=== PATIENT | female | born 1990 | race Two or more races ===

== ENCOUNTER → 2017-04-14 | Outpatient (CLI) | payer SELFPAY ==
--- NOTE | 2017-04-14 14:42 | RADIOLOGY REPORT (SQ) ---
EXAM DESCRIPTION: U/S OB TRANSVAG W/DOPPLER COMPLETED DATE/TIME: 04/14/2017 2:21 pm REASON FOR STUDY: Z34.81 ENCOUNTER FOR SUPRVSN OF NORMAL , FIRST TRIMESTER Z34.81 ENCOUNTE R FOR SUPRVSN OF NORMAL , FIRST TRIM COMPARISON: None. TECHNIQUE: Transvaginal static and realtime grayscale images acquired of the pelvis. Additional katy cted spectral and color Doppler images recorded. All images stored on PACs. bHCG: Not available. LIMITATIONS: None. FINDINGS: FETUS: Living intrauterine . EGA: 8 week 5 day. NASEEM: 11/19/2017. FHR: 175 beats per minute. SUBCHORIONIC BLEED: Yes. SIZE OF BLEED: 1.8 x 2.4 cm. UTERUS: No masses. No anomalies. No IUD visualized. CERVICAL LENGTH: 3.8 cm. Closed. RIGHT ADNEXA: Normal ovary with normal vascular flow. No adnexal free fluid. 2 cm hypoechoic area, possibly a hemorrhagic cyst. LEFT ADNEXA: Normal ovary with normal vascular flow. No adnexal free fluid. No adnexal masses. FREE FLUID: None. OTHER: No other significant finding. IMPRESSION: LIVING INTRAUTERINE . EGA 8 WEEK 5 DAY. A SUBCHORIONIC BLEED IS PRESENT. NO IUD VISUALIZED. Trimester of : First - 0 to 13 weeks. TECHNICAL DOCUMENTATION: JOB ID: [id number] [employer]- All Rights Reserved
== END ==
LOC: RAD 13:26
PROVIDERS: ATTEND Nurse Practitioner Women's Health
DX: Z34.81 Encounter for supervision of other normal pregnancy, first trimester (principal)
CPT/HCPCS: 76817; 93976

== ENCOUNTER → 2017-07-06 | Outpatient (CLI) | payer SELFPAY ==
--- NOTE | 2017-07-06 14:50 | RADIOLOGY REPORT (SQ) ---
EXAM DESCRIPTION: U/S OB 14+ TRNABD 1GES W/O DOP COMPLETED DATE/TIME: 07/06/2017 2:11 pm REASON FOR STUDY: ENCOUNTER FOR SUPERVISION OF OTHER NORMAL . SECONF TRIMESTER Z34.82 ENCO UNTER FOR SUPRVSN OF NORMAL , SECOND TRI COMPARISON: No previous this TECHNIQUE: Static and Dynamic grayscale imaging performed of gravid uterus using transabdominal appr oach. Additional selected color Doppler and spectral images recorded. All stored on PACS. LIMITATIONS: New FINDINGS: EGA: 20 weeks 5 days NASEEM: 11/18/2017 EFW: 398 grams PERCENTILE: Not calculated CONNIE: Largest pocket 6.3 cm PLACENTA: Posterior GRADE: I PRESENTATION: Cephalic. ANATOMY: HEART RATE: 160 beats per minute. FOUR CHAMBER HEART: Visualized. THREE VESSEL CORD: Yes. CORD INSERTION: Visualized. KIDNEYS AND BLADDER: Visualized. Appear normal. STOMACH: Visualized. Appears normal. SPINE: Normal as visualized. BRAIN AND LATERAL VENTRICLES: Visualized. Appear normal. OTHER: No other significant finding. MATERNAL ADNEXA: Maternal ovaries not visualized. CERVICAL LENGTH: 3.4 cm Closed. OTHER: No other significant finding. IMPRESSION: LIVING INTRAUTERINE . ESTIMATED GESTATIONAL AGE 20 weeks 5 days NO VISUALIZED ANOMALIES. Trimester of : Second trimester - 13 weeks 1 day to 27 weeks 6 days. TECHNICAL DOCUMENTATION: JOB ID: [id number] [employer]- All Rights Reserved
== END ==
LOC: RAD 13:30
PROVIDERS: ATTEND Nurse Practitioner Women's Health
DX: Z34.82 Encounter for supervision of other normal pregnancy, second trimester (principal)
CPT/HCPCS: 76805

== ENCOUNTER 2017-11-13 12:46 | Inpatient (IN) | payer SELFPAY ==
[2017-11-13 13:24] LABS: APPEARANCE,URINE SLIGHTLY-CLOUDY; BILIRUBIN,URINE NEGATIVE (NEGATIVE); COLOR,URINE YELLOW; GLUCOSE, URINE NEGATIVE (NEGATIVE); KETONES,URINE NEGATIVE (NEGATIVE); LEUKOCYTE ESTERASE,URINE TRACE (NEGATIVE); NITRITE,URINE NEGATIVE (NEGATIVE); PROTEIN,URINE NEGATIVE (NEGATIVE); URINE SPECIFIC GRAVITY 1.013
[2017-11-13 13:39] LABS: URINE AMPHETAMINES SCREEN NEGATIVE; URINE BARBITURATES SCREEN NEGATIVE; URINE BENZODIAZEPINES SCREEN NEGATIVE; URINE COCAINE SCREEN NEGATIVE; URINE MARIJUANA (THC) SCREEN NEGATIVE; URINE METHADONE SCREEN NEGATIVE; URINE PHENCYCLIDINE SCREEN NEGATIVE
[2017-11-13] MEDS ORDERED: RINGERS SOLUTION,LACTATED 300 ML IV ONE (14:31)
[2017-11-13] MEDS ORDERED: OXYTOCIN/NORMAL SALINE 20 UNIT/1,000 ML RTUINJ IV PRN ×3 (14:31→21:24)
[2017-11-13 15:58] LABS: ABSOLUTE EOSINOPHILS # (AUTO) 0.1 10^3/uL (0.0-0.6); ABSOLUTE LYMPHOCYTES (AUTO) 1.7 10^3/uL (0.5-4.7); ABSOLUTE MONOCYTES (AUTO) 0.5 10^3/uL (0.1-1.4); ABSOLUTE NEUT (AUTO) 5.3 10^3/uL (1.7-8.2); BASOPHILS % (AUTO) 0.2 % (0-2); EOSINOPHILS % (AUTO) 0.9 % (0-6); HEMOGLOBIN 12.3 g/dL (12.0-15.5); LYMPHOCYTES % (AUTO) 22.3 % (13-45); MEAN CORPUSCULAR HEMOGLOBIN 31.1 pg (27.0-33.4); MEAN CORPUSCULAR HGB CONC 34.1 g/dL (32.0-36.0); MEAN CORPUSCULAR VOLUME 91 fl (80-97); MONOCYTES % (AUTO) 6.9 % (3-13); PLATELET COUNT 258 10^3/uL (150-450); RED BLOOD COUNT 3.96 10^6/uL (3.72-5.28); RED CELL DISTRIBUTION WIDTH 14.1 % (11.5-14.0); SEGMENTED NEUTROPHILS % (AUTO) 69.7 % (42-78); TOTAL CELLS COUNTED % (AUTO) 100 %; WHITE BLOOD COUNT 7.6 10^3/uL (4.0-10.5)
[2017-11-13] MEDS ORDERED: OXYTOCIN/NORMAL SALINE 20 UNIT/1,000 ML RTUINJ ONE (16:20)
[2017-11-13] MEDS ORDERED: LIDOCAINE 1% INJ-PF (10 MG/ML) 30 ML SDV ONE (16:20)
[2017-11-13] MEDS ORDERED: MISOPROSTOL 0.2 MG TABLET ONE (16:20)
--- NOTE | 2017-11-13 17:15 | Admission Physical ---
Datetime Report Generated by CPN: 11/13/2017 17:15 CURRENT ADMISSION Chief Complaint: Sent from OB Office for Evaluation and Treatment - Please Specify Chief Complaint Other: IUP @ 39w1d- polyhydramnious with advanced dilatation at office Indication for Induction: Polyhydramnios; Other Indication for Induction- Other: advance dilatation Admit Impression : Term, Intrauterine Admit Plan: Admit to Unit; Initiate Labor Induction Protocol ALLERGIES Medication Allergies: No Medication Allergies: No Known Allergies (11/30/2011) Latex: No Latex Allergies Food Allergies: N/A Environmental Allergies: N/A OBSTETRICAL HISTORY EDC: 11/19/2017 00:00 : 6 Para: 3 Gestational Diabetes: No Rh Sensitization: No Incompetent Cervix: No AVE: No Infertility: No ART Treatment: No Uterine Anomaly: No IUGR: No Hx Previous C/S: No Macrosomia: No Hx Loss/Stillborn: No PIH: No Hx : No Placenta Previa/Abruption: No Depression/PP Depression: No PTL/PROM: No Post Hemorrhage: No Current Procedures: Ultrasound Obstetrical History Comments: G1 - 2007, SAB G2 - 2008, , Boy G3 - 2012, , Girl G4 - 2013, SAB G5 - 2014, , Girl G6 - Current SEE RECORDS Alcohol: No Marijuana : No Cocaine: No Other Illicit Drugs: No Cigarettes: Never Smoker. [id number] MEDICAL HISTORY Diabetes: No Blood Transfusion: Yes Pulmonary Disease (Asthma, TB): No Breast Disease: No Hypertension: No Typesetting Machine Operator/Tender Surgery: No Heart Disease: No Hosp/Surgery: No Autoimmune Disorder: No Anesthetic Complications: No Kidney Disease: No Abnormal Pap Smear: No Neuro/Epilepsy: No Psychiatric Disorders: No Other Medical Diseases: No Hepatitis/Liver Disease: No Significant Family History: No Varicosities/Phlebitis: No Trauma/Violence : No Thyroid Dysfunction: No Medical History Comments: Blood Transfusion 2007 with D_C INFECTIOUS HISTORY Gonorrhea: No Genital Herpes: No Chlamydia: No Tuberculosis: No Syphilis: No Hepatitis: No HIV/AIDS Exposure: No Rash or Viral Illness: No HPV: No PHYSICAL EXAM General: Normal HEENT: Deferred Neurologic: Normal Thyroid: Deferred Heart: Normal Lungs: Normal Breast: Deferred Back: Normal Abdomen: Normal Genitourinary Exam: Normal Extremities: Normal DTRs: Normal Pelvic Type: Adequate Vital Signs: Reviewed; Within Normal Limits VAGINAL EXAM Dilatation: 6 Effacement: 60 Station: -2 Contraction Comments: 2-4 MEMBRANES Membranes: Ruptured Amniotic Fluid Color: Clear FETUS A EGA: 39.1 Monitoring: External US Variability: Moderate 6-25bpm Decelerations: None FHR Category: Category I Admit Comment: 26yo @ 39w1d sent from office for IOL with polyhydramnious and advance dilatation. Pt. is B pos, Rubella immune, GBS neg with late entry to care and obesity. No other significant medical hx and pelvis proven to 8lbs. Pt. admitted into unit and AROM'ed by Dr. Anderson with large amount of clear fluid will augment with pit if needed. Desires natural childbirth. PLANS FOR LABOR AND DELIVERY Labor and Delivery: None Pain Management: Natural Feeding Preference: Both Benefit of Breast Feed Discussed: Yes Circumcision: N/A INFORMED CONSENT Assignment: Ann Anderson MD Signature: with User ID: Lexis : with User ID: [email or web address]
--- NOTE | 2017-11-13 17:33 | L&D Progress Notes ---
PROGRESS NOTES Datetime Report Generated by CPN: 11/13/2017 17:33 PROGRESS NOTE Impression Other: IUP @ 39w1d- stable Procedures: Sterile Vag Exam Plan: Continue Present Management; Augmentation Informed Consent Obtained: Vaginal Delivery; Induction of Labor; Risks, Benefits and Alternatives Discussed Vital Signs : Reviewed; Within Normal Limits Comment: S: pt. reports increased perineal pain with contractions, comfortable does not want pain medication or epidural at this time O: VSS, cervix as stated A: IUP @39w1d- poly and advanced dilatation-AROM by Dr. Anderson, desires to wait on pitocin at this time P: continue IOL, pit protocol as needed. VAGINAL EXAM Dilatation: 6 Effacement: 60 Station: -2 Contractions: 2-4 MEMBRANES Membranes: Ruptured Amniotic Fluid Color: Clear FETUS A Monitoring: External US FHR Category: Category I SIGNATURE SIGNATURE: [id number];[id number] SIGNATURE: [id number] Assignment: Ann Anderson MD Signature: with User ID: Lexis : with User ID: [email or web address]
[2017-11-13] MEDS: RINGERS SOLUTION,LACTATED 1,000 ML IV PRN ×3 (17:48→19:09)
[2017-11-13] MEDS ORDERED: FENTANYL/BUPIVACAINE/NS/PF 300 MCG/150 ML RTUINJ EPI ONE (18:24)
[2017-11-13] MEDS ORDERED: BUPIVACAINE HCL 0.25 % INJ/PF (2.5 MG/1 ML) 30 ML VIAL ONE (18:24)
[2017-11-13] MEDS ORDERED: EPHEDRINE SULFATE INJ 50 MG/1 ML AMPULE ONE (18:24)
[2017-11-13] MEDS ORDERED: LIDOCAINE 1.5%/EPINEPHRINE INJ-PF 30 ML SDV ONE (18:24)
[2017-11-13] MEDS ORDERED: NA PHOS,M-B/NA PHOS,DI-BA (ADULT) 133 ML ENEMA PR PRN (21:24)
[2017-11-13] MEDS ORDERED: DIPH/PERTUSS(ACELL)/TETANUS VAC/PF 0.5 ML SYR (>=10YO) IM PRN (21:24)
[2017-11-13] MEDS ORDERED: DIBUCAINE 1% OINTMENT 28 GM TP PRN (21:24)
[2017-11-13] MEDS ORDERED: PROMETHAZINE HCL 25 MG SUPP.RECT PR PRN (21:24)
[2017-11-13] MEDS ORDERED: DIPHENHYDRAMINE HCL 25 MG CAPSULE PO PRN (21:24)
[2017-11-13] MEDS ORDERED: MEASLES,MUMPS&RUBELLA VACC/PF 0.5 ML VIAL SUBCUT PRN (21:24)
[2017-11-13] MEDS ORDERED: MISOPROSTOL 0.2 MG TABLET PR PRN (21:24)
[2017-11-13] MEDS ORDERED: GLYCERIN/WITCH HAZEL LEAF 1 EACH MED..PAD TP PRN (21:24)
[2017-11-13] MEDS ORDERED: MAGNESIUM HYDROXIDE SUSP 30 ML UDCUP PO PRN (21:24)
[2017-11-13] MEDS ORDERED: PSEUDOEPHEDRINE HCL 30 MG TABLET PO PRN (21:24)
[2017-11-13] MEDS ORDERED: ACETAMINOPHEN 325 MG TABLET PO PRN (21:24)
[2017-11-13] MEDS ORDERED: PROMETHAZINE HCL INJ 25 MG/1 ML VIAL IV PRN (21:24)
[2017-11-13] MEDS ORDERED: BENZOCAINE/MENTHOL AEROSOL SPRAY 56 ML TOP PRN (21:24)
[2017-11-13] MEDS ORDERED: ZOLPIDEM TARTRATE 5 MG TABLET PO PRN (21:24)
[2017-11-13] MEDS ORDERED: PROMETHAZINE HCL 25 MG TABLET PO PRN (21:24)
[2017-11-13] MEDS ORDERED: ACETAMINOPHEN WITH CODEINE #3 TABLET PO PRN ×2 (21:24)
[2017-11-13] MEDS ORDERED: IBUPROFEN 800 MG TABLET ONE (21:56)
[2017-11-13] MEDS ORDERED: FAMOTIDINE 20 MG TABLET ONE (21:56)
[2017-11-13] MEDS: FAMOTIDINE 20 MG TABLET PO SCH (22:03)
[2017-11-13] MEDS: IBUPROFEN 800 MG TABLET PO SCH (22:04)
--- NOTE | 2017-11-13 22:29 | Delivery Summary ---
Del Sum A-C Datetime Report Generated by CPN: 11/13/2017 22:29 DELIVERY PERSONNEL DELIVERY PERSONNEL: [id number] Delivery Doctor:: Ann Anderson MD Anesthesiologist:: Jonathan Contreras MD Labor and Delivery Nurse:: Analilia Chavez RNburglar alarm assembler Nurse:: Anna Cantu RN Customizer/ACQUISITIONS ANALYST: Adelia Haq, ST MATERNAL INFORMATION Delivery Anesthesia: Epidural Medications After Delivery: Pitocin Drip 20 Units/1000ml NSS; Other-Please Comment Meds After Delivery Comment: Cytotec 1000 mcg MA Maternal Complications: None Provider Comments: VFI delivered in EVA presentation. No nuchal cord. Shoulders and body delivered without difficulty. Cord doubly clamped and cut and infant to maternal abdomen. Compound left hand noted. Placenta delivered intact spntaneously. FF at U. Cytotec 1000mcg per rectum placed. Superficial left labial laceration repaired. Good hemostasis. Mother and baby stable upon provider leaving the room. LABOR SUMMARY EDC: 11/19/2017 00:00 No. Babies in Womb: 1 Attempted: No Labor Anesthesia: Epidural LABOR INFORMATION Reason for Induction: Polyhydramnios Reason for Induction- Other: Augmentation Onset of Labor: 11/13/2017 14:18 Complete Dilatation: 11/13/2017 20:57 Oxytocin: Augmentation Group B Beta Strep: Negative Antibiotics # of Doses: 0 Steroids Given: None Reason Steroids Not Administered: Not Applicable MEMBRANES Membranes Rupture Method: Artificial Rupture of Membranes: 11/13/2017 16:14 Length of Rupture (hr): 4.82 Amniotic Fluid Color: Clear Amniotic Fluid Amount: Moderate Amniotic Fluid Odor: Normal STAGES OF LABOR Stage 1 hr: 6 Stage 1 min: 39 Stage 2 hr: 0 Stage 2 min: 6 Stage 3 hr: 0 Stage 3 min: 3 Total Time in Labor hr: 6 Total Time in Labor min: 48 VAGINAL DELIVERY Episiotomy: None Laceration #1: Vaginal Laceration Extension #1: N/A Laceration Repair: Yes Laceration Repair Note: superficial labial laceration on the left repaired for hemostasis. Sponge Count Correct: Yes Sharps Count Correct: Yes CSECTION DELIVERY Primary Indication: N/A Secondary Indication: N/A CSection Incidence: N/A Labor: N/A Elective: N/A CSection Incision: N/A BABY A INFORMATION Infant Delivery Date/Time: 11/13/2017 21:03 Method of Delivery: Vaginal Born in Route : No : N/A Forceps: N/A Vacuum Extraction: N/A Shoulder Dystocia : No PRESENTATION/POSITION BABY A Presentation: Cephalic Cephalic Presentation: Vertex Vertex Position: Left Occipital Anterior Breech Presentation: N/A PLACENTA INFORMATION BABY A Placenta Delivery Time : 11/13/2017 21:06 Placenta Method of Delivery: Spontaneous Placenta Status: Delivered SCORES BABY A Heart Rate 1 min: >100 bpm Resp Effort 1 min: Good Cry Reflex Irritability 1 min: Cough or Sneeze or Pulls Away Muscle Tone 1 min: Active Motion Color 1 min: Blue/Pale Resuscitation Effort 1 min: Tactile Stimulation SCORE 1 MIN: 8 Heart Rate 5 min: >100 bpm Resp Effort 5 min: Good Cry Reflex Irritability 5 min: Cough or Sneeze or Pulls Away Muscle Tone 5 min: Active Motion Color 5 min: Body Ponder, Extremities Blue Resuscitation Effort 5 min: Tactile Stimulation SCORE 5 MIN: 9 INFANT INFORMATION BABY A Gestational Age at Delivery: 39.1 Gestational Status: Full Term- 39- 40.6 Weeks Outcome : Liveborn Infant Condition : Stable Sex: Female IDENTIFICATION BABY A Infant Verification Date/Time: 11/13/2017 21:19 ID Band Number: [id number] Mother's Name Verified: Yes Infant RN Verifying Infant: S. Rosastibphiir, RNC _ E. Jilek, RN WEIGHT/LENGTH BABY A Birthweight (gm): 3710 Weight (lb): 8 Infant Weight (oz): 3 Infant Length (in): 21.00 Infant Length (cm): 53.34 CORD INFORMATION BABY A No. Cord Vessels: 3 Nuchal Cord : N/A Nuchal Cord- Other: Left compound hand Cord Blood Taken: Yes-For Storage (Mom's Blood type +) Infant Suction: Mouth ASSESSMENT BABY A Complications: Multiple Late Decels Physical Findings at Delivery: Molding of the Head Respirations: Appears Normal Skin to Skin: Yes Supervisor Accounts Receivable/ALS Called : No Infant Care By: Katiana Cantu RN Transferred To: Remains with Mother BABY B INFORMATION : N/A SIGNATURES Signature: with User ID: [email or web address]
[2017-11-14] MEDS: IBUPROFEN 800 MG TABLET PO SCH ×3 (05:15→22:22)
[2017-11-14 06:56] LABS: HEMATOCRIT 34.6 % (36.0-47.0); MEAN CORPUSCULAR HEMOGLOBIN 31.6 pg (27.0-33.4); MEAN CORPUSCULAR HGB CONC 34.7 g/dL (32.0-36.0); MEAN CORPUSCULAR VOLUME 91 fl (80-97); PLATELET COUNT 257 10^3/uL (150-450); RED BLOOD COUNT 3.81 10^6/uL (3.72-5.28); RED CELL DISTRIBUTION WIDTH 13.9 % (11.5-14.0); WHITE BLOOD COUNT 9.1 10^3/uL (4.0-10.5)
--- NOTE | 2017-11-14 09:57 | PDOC PROGRESS REPORT ---
Subjective Progress Note for:: 11/14/17 Subjective:: doing well. lochia minimal Reason For Visit: POLYHYDRAMNIOUS WITH ADVANCE DILATATION Physical Exam - Physical Exam Vital Signs: Temp Pulse Resp BP Pulse Ox 98.0 F 64 18 98/73 L 98 11/14/17 09:34 11/14/17 09:34 11/14/17 09:34 11/14/17 09:34 11/14/17 09:34 Intake & Output 11/13/17 11/14/17 11/15/17 06:59 06:59 06:59 Weight 88 kg General appearance: PRESENT: no acute distress, cooperative GI/Abdominal exam: PRESENT: soft - Obstetrical Exam Fundal Height: u/u - u/2 Result Laboratory Results: 11/14/17 06:32 11/13/17 11/13/17 11/13/17 13:03 15:25 15:25 WBC 7.6 RBC 3.96 Hgb 12.3 Hct 36.0 MCV 91 MCH 31.1 MCHC 34.1 RDW 14.1 H Plt Count 258 Seg Neutrophils % 69.7 Lymphocytes % 22.3 Monocytes % 6.9 Eosinophils % 0.9 Basophils % 0.2 Absolute Neutrophils 5.3 Absolute Lymphocytes 1.7 Absolute Monocytes 0.5 Absolute Eosinophils 0.1 Absolute Basophils 0.0 Urine Color YELLOW Urine Appearance SLIGHTLY-CLOUDY Urine pH 7.0 Ur Specific [place] 1.013 Urine Protein NEGATIVE Urine Glucose (UA) NEGATIVE Urine Ketones NEGATIVE Urine Blood NEGATIVE Urine Nitrite NEGATIVE Ur Leukocyte Esterase TRACE H Urine WBC (Auto) 9 Urine RBC (Auto) 1 Blood Type B POSITIVE Antibody Screen NEGATIVE 11/14/17 06:32 WBC 9.1 RBC 3.81 Hgb 12.0 Hct 34.6 L MCV 91 MCH 31.6 MCHC 34.7 RDW 13.9 Plt Count 257 Seg Neutrophils % Lymphocytes % Monocytes % Eosinophils % Basophils % Absolute Neutrophils Absolute Lymphocytes Absolute Monocytes Absolute Eosinophils Absolute Basophils Urine Color Urine Appearance Urine pH Ur Specific [place] Urine Protein Urine Glucose (UA) Urine Ketones Urine Blood Urine Nitrite Ur Leukocyte Esterase Urine WBC (Auto) Urine RBC (Auto) Blood Type Antibody Screen Assessment & Plan - Diagnosis (1) Obstetric labial laceration, delivered, current hospitalization Is this a current diagnosis for this admission?: Yes (2) Polyhydramnios Qualifiers: Fetus number: single or unspecified fetus Is this a current diagnosis for this admission?: Yes (3) Vaginal delivery Is this a current diagnosis for this admission?: Yes - Plan Summary Plan Summary: likely discharge in the AM. unremarkable course.
[2017-11-14] MEDS: FERROUS SULFATE 325 MG TABLET PO SCH ×2 (11:23→17:23)
[2017-11-14] MEDS: PRENATAL VITAMIN W DHA CAPSULE PO SCH (11:23)
[2017-11-14] MEDS: DOCUSATE SODIUM 100 MG CAPSULE PO SCH ×2 (11:23→17:23)
[2017-11-14] MEDS: SENNOSIDES/DOCUSATE 8.6-50 MG 1 EACH TABLET PO SCH (11:23)
[2017-11-14] MEDS: FAMOTIDINE 20 MG TABLET PO SCH ×2 (11:24→22:22)
[2017-11-15] MEDS: IBUPROFEN 800 MG TABLET PO SCH ×2 (06:25→13:03)
--- NOTE | 2017-11-15 08:58 | PDOC DISCHARGE SUMMARY ---
Final Diagnosis Discharge Date: 11/15/17 - Final Diagnosis (1) Obstetric labial laceration, delivered, current hospitalization Is this a current diagnosis for this admission?: Yes (2) Polyhydramnios Is this a current diagnosis for this admission?: Yes (3) Vaginal delivery Is this a current diagnosis for this admission?: Yes Discharge Data - Discharge Medication Home Medications: Pnv W-O Ca No5/Fe Fumarate/FA [-U Capsule] 1 each PO DAILY 10/28/11 Reason(s) for Admission: Other - Polyhydramnios, Advanced Dilation Procedures: NST Intrapartum Procedure(s): Spontaneous Vaginal Delivery Complication(s): Laceration-Labial Laceration-Degree: 1st - Diagnosis Test Laboratory: Temp Pulse Resp BP Pulse Ox 98.3 F 79 16 97/66 L 96 11/15/17 08:20 11/15/17 08:20 11/15/17 08:20 11/15/17 08:20 11/15/17 08:20 11/13/17 11/13/17 11/14/17 13:03 15:25 06:32 RBC 3.96 3.81 Hgb 12.3 12.0 Hct 36.0 34.6 L Urine Opiates Screen NEGATIVE - Discharge information/Instructions Discharge Activity: Balance Activity w/Rest, Pelvic Rest Discharge Diet: Regular Disposition: HOME, SELF-CARE Follow up with: [facility] in: 4, Weeks
[2017-11-15 09:19] VITALS: BP 98/73
[2017-11-15] MEDS: SENNOSIDES/DOCUSATE 8.6-50 MG 1 EACH TABLET PO SCH (09:35)
[2017-11-15] MEDS: FAMOTIDINE 20 MG TABLET PO SCH (09:35)
[2017-11-15] MEDS: PRENATAL VITAMIN W DHA CAPSULE PO SCH (09:35)
[2017-11-15] MEDS: FERROUS SULFATE 325 MG TABLET PO SCH (09:35)
[2017-11-15] MEDS: DOCUSATE SODIUM 100 MG CAPSULE PO SCH (09:35)
== END 2017-11-15 15:30 | disposition home or self-care (01) | DRG 775 ==
LOC: LC 12:46 → LR 14:51 → 2S 23:14
PROVIDERS: ADMIT Student in an Organized Health Care Education/Training Program; ATTEND Student in an Organized Health Care Education/Training Program
PROC: 10E0XZZ Delivery of Products of Conception, External Approach (ICD-10-PCS; principal; 2017-11-13)
PROC: 0UQMXZZ Repair Vulva, External Approach (ICD-10-PCS; 2017-11-13)
PROC: 10907ZC Drainage of Amniotic Fluid, Therapeutic from Products of Conception, Via Natural or Artificial Opening (ICD-10-PCS; 2017-11-13)
PROC: 4A1HXCZ Monitoring of Products of Conception, Cardiac Rate, External Approach (ICD-10-PCS; 2017-11-13)
DX: O40.3XX0 Polyhydramnios, third trimester, not applicable or unspecified (principal); O70.0 First degree perineal laceration during delivery; O32.6XX0 Maternal care for compound presentation, not applicable or unspecified; O76 Abnormality in fetal heart rate and rhythm complicating labor and delivery; Z3A.39 39 weeks gestation of pregnancy; Z37.0 Single live birth
CPT/HCPCS: 36415; 80307; 81001; 85025; 85027; 86592; 86850; 86900; 86901; 94760; J2590; J3010; J3490

== ENCOUNTER 2019-03-16 15:12 | Emergency (ER) | payer SELFPAY ==
--- NOTE | 2019-03-16 15:53 | ER Document Report ---
ED Medical Screen (RME) - General Chief Complaint: Upper Abdominal Pain Stated Complaint: UPPER ABDOMINAL PAIN Time Seen by Provider: 03/16/19 15:49 Primary Care Provider: MAEVE SWANN NP [Primary Care Provider] - Follow up as needed Mode of Arrival: Wheelchair Information source: Patient Notes: 28-year-old female presented to ED for complaint of upper abdominal pain. She states she is already had blood work and ultrasound. She states she is scheduled for an endoscopy on Monday. Last menstrual period was 02/20/2019. She states she is having nausea no vomiting. She states she had an ultrasound done yesterday and was told that she had a lot of gallstones. Patient is alert oriented respirations regular and unlabored speaking full full sentences. She s tates that the ultrasound also said that the level was a little damaged. He denies smoking drinking or using any drugs. I have greeted and performed a rapid initial assessment of this patient. A comprehensive ED assessment and evaluation of the patient, analysis of test results and completion of medical decision making process will be conducted by an additional ED providers. TRAVEL OUTSIDE OF THE [place] IN LAST 30 DAYS: No - Related Data Allergies/Adverse Reactions: No Known Allergies Allergy (Verified 11/30/11 19:00) Physical Exam - Vital signs Vitals: Temp Pulse Resp BP Pulse Ox 98.0 F 75 16 111/65 100 03/16/19 15:42 03/16/19 15:42 03/16/19 15:42 03/16/19 15:42 03/16/19 15:42 Course - Vital Signs Vital signs: Temp Pulse Resp BP Pulse Ox 98.0 F 75 16 111/65 100 03/16/19 15:42 03/16/19 15:42 03/16/19 15:42 03/16/19 15:42 03/16/19 15:42 Doctor's Discharge - Discharge Referrals: MAEVE SWANN NP [Primary Care Provider] - Follow up as needed
[2019-03-16 16:27] LABS: ABSOLUTE BASOPHILS # (AUTO) 0.1 10^3/uL (0.0-0.2); ABSOLUTE LYMPHOCYTES (AUTO) 1.8 10^3/uL (0.5-4.7); TOTAL CELLS COUNTED % (AUTO) 100 %
[2019-03-16 16:31] LABS: ABSOLUTE EOSINOPHILS # (AUTO) 0.1 10^3/uL (0.0-0.6); ABSOLUTE MONOCYTES (AUTO) 0.9 10^3/uL (0.1-1.4); ABSOLUTE NEUT (AUTO) 10.8 10^3/uL (1.7-8.2); BASOPHILS % (AUTO) 0.4 % (0-2); EOSINOPHILS % (AUTO) 0.8 % (0-6); HEMATOCRIT 40.9 % (36.0-47.0); HEMOGLOBIN 13.9 g/dL (12.0-15.5); LYMPHOCYTES % (AUTO) 13.1 % (13-45); MEAN CORPUSCULAR HEMOGLOBIN 29.8 pg (27.0-33.4); MEAN CORPUSCULAR VOLUME 88 fl (80-97); MONOCYTES % (AUTO) 6.6 % (3-13); PLATELET COUNT 290 10^3/uL (150-450); RED BLOOD COUNT 4.66 10^6/uL (3.72-5.28); RED CELL DISTRIBUTION WIDTH 13.1 % (11.5-14.0); SEGMENTED NEUTROPHILS % (AUTO) 79.1 % (42-78); WHITE BLOOD COUNT 13.7 10^3/uL (4.0-10.5)
[2019-03-16 16:45] LABS: ALBUMIN 4.6 g/dL (3.5-5.0); ALKALINE PHOSPHATASE 85 U/L (38-126); ANION GAP 12 (5-19); ASPARTATE AMINO TRANSFERASE 47 U/L (14-36); BILIRUBIN,DIRECT 0.2 mg/dL (0.0-0.4); BILIRUBIN,TOTAL 0.5 mg/dL (0.2-1.3); BLOOD UREA NITROGEN 15 mg/dL (7-20); CALCIUM 9.5 mg/dL (8.4-10.2); CARBON DIOXIDE 23 mmol/L (22-30); CHLORIDE 105 mmol/L (98-107); GLUCOSE 95 mg/dL (75-110); POTASSIUM 3.9 mmol/L (3.6-5.0)
[2019-03-16] MEDS ORDERED: LIDOCAINE 2% VISCOUS SOLN 20 ML UDCUP PO ONE (17:27)
[2019-03-16] MEDS ORDERED: MAG HYDROX/AL HYDROX/SIMETH SUSP 30 ML UDCUP PO ONE (17:27)
[2019-03-16] MEDS ORDERED: METOCLOPRAMIDE HCL ORAL SOLN 10 MG/10 ML UDCUP PO ONE (17:27)
--- NOTE | 2019-03-16 17:27 | RADIOLOGY REPORT (SQ) ---
EXAM DESCRIPTION: U/S ABDOMEN LIMITED W/O DOP COMPLETED DATE/TIME: 03/16/2019 4:58 pm REASON FOR STUDY: upper abd pain COMPARISON: RIGHT UPPER QUADRANT ULTRASOUND 01/10/2012. TECHNIQUE: Dynamic and static grayscale images acquired of the abdomen and recorded on PACS. Grovero lauren selected color Doppler and spectral images recorded. LIMITATIONS: None. FINDINGS: PANCREAS: No masses. Visualized pancreatic duct normal caliber. LIVER: No masses. Echotexture normal. LIVER VASCULATURE: Normal directional flow of the main portal vein and hepatic veins. GALLBLADDER: Numerous small layering gallstones. Normal wall thickness. No pericholecystic fluid. ULTRASOUND-DETECTED NAGEL'S SIGN: Negative. INTRAHEPATIC DUCTS AND COMMON DUCT: Dilated common bile duct measuring 9 mm. No obstructive process visualized. INFERIOR VENA CAVA: Normal flow. AORTA: No aneurysm. RIGHT KIDNEY: Normal size. Normal echogenicity. No solid or suspicious masses. No hydronephrosis. No calcifications. PERITONEAL AND RIGHT PLEURAL SPACE: No ascites or effusions. OTHER: No other significant findings. IMPRESSION: Cholelithiasis without evidence of acute cholecystitis. Dilated common bile duct measuring 9 mm. No choledocolith or other obstructing process visualized. Consider MRCP for further evaluation. TECHNICAL DOCUMENTATION: JOB ID: [id number] [employer]- All Rights Reserved Reading location - IP/workstation name: [email or web address]
--- NOTE | 2019-03-16 17:43 | ER Document Report ---
ED General - General Chief Complaint: Abdominal Pain Stated Complaint: UPPER ABDOMINAL PAIN Time Seen by Provider: 03/16/19 15:49 Primary Care Provider: MAEVE SWANN NP [Primary Care Provider] - Follow up as needed Mode of Arrival: Wheelchair Notes: Ms. Foy is a 28 yo f w/ no significant past medical history presenting to the ED for abdominal pain and nausea. Patient states that the nausea has been ongoing for the past several weeks. She was evaluated by her primary care doctor and had blood work and ultrasound done. At that point in time, she was told that her liver was not doing well and that she needed a possible liver biopsy. She also had an ultrasound performed which showed evidence of gallstones. Patient was told that this could also be an ulcer so she was starte d on omeprazole and scheduled for an endoscopy this upcoming March 19. Patient states that she has been taking her omeprazole for the past few days. She denies the pain being associated with fatty foods however she has had a lean protein diet. Patient states that she had been doing otherwise well today when the pain suddenly became significant only worse and caused her to double over. At that point in time, the pain took her breath away however she denies any shortness of breath otherwise. No cough, fever, vomiting or diarrhea. She does endorse some mild chills. No known ill contacts or recent travel. Of note, the patient is a G6, P4 with 2 previous miscarriages. Her last resulted in an [id number] child. TRAVEL OUTSIDE OF THE [place] IN LAST 30 DAYS: No - Related Data Allergies/Adverse Reactions: No Known Allergies Allergy (Verified 11/30/11 19:00) Past Medical History - General Information source: Patient - Social History Smoking Status: Never Smoker Chew tobacco use (# tins/day): No Frequency of alcohol use: None Drug Abuse: None Family History: Reviewed & Not Pertinent Patient has suicidal ideation: No Patient has homicidal ideation: No Review of Systems - Review of Systems Constitutional: Chills EENT: No symptoms reported Cardiovascular: No symptoms reported Respiratory: No symptoms reported Gastrointestinal: See HPI, Abdominal pain, Nausea. denies: Diarrhea, Vomiting, Constipation, Poor appetite Genitourinary: No symptoms reported Female Genitourinary: No symptoms reported Musculoskeletal: No symptoms reported Skin: No symptoms reported Hematologic/Lymphatic: No symptoms reported Neurological/Psychological: No symptoms reported Physical Exam - Vital signs Vitals: Temp Pulse Resp BP Pulse Ox 98.0 F 75 16 111/65 100 03/16/19 15:42 03/16/19 15:42 03/16/19 15:42 03/16/19 15:42 03/16/19 15:42 Interpretation: Normal - General General appearance: Appears well, Alert - HEENT Head: Normocephalic, Atraumatic Eyes: Normal Pupils: PERRL - Respiratory Respiratory status: No respiratory distress Chest status: Nontender Breath sounds: Normal Chest palpation: Normal - Cardiovascular Rhythm: Regular Heart sounds: Normal auscultation Murmur: No - Abdominal Inspection: Normal Distension: No distension Bowel sounds: Normal Tenderness: Nontender Organomegaly: No organomegaly - Back Back: Normal, Nontender - Extremities General upper extremity: Normal inspection, Nontender, Normal color, Normal ROM, Normal temperature General lower extremity: Normal inspection, Nontender, Normal color, Normal ROM, Normal temperature, Normal weight bearing. No: Nay's sign - Neurological Neuro grossly intact: Yes Cognition: Normal Orientation: AAOx4 Maxx Coma Scale Eye Opening: Spontaneous [place] Coma Scale Verbal: Oriented Maxx Coma Scale Motor: Obeys Commands Maxx Coma Scale Total: 15 Speech: Normal Motor strength normal: LUE, RUE, LLE, RLE Sensory: Normal - Psychological Associated symptoms: Normal affect, Normal mood - Skin Skin Temperature: Warm Skin Moisture: Dry Skin Color: Normal Course - Re-evaluation Re-evalutation: Patient is generally well-appearing and nontoxic. Initial vitals within normal limits. Differential diagnosis includes GERD, daily, ulcer, cholelithiasis, cholecystitis (less likely), 03/16/19 17:35 Reviewed labs. To be seen notable for leukocytosis without significant left shift. CMP notable for mild elevation AST. Urine is positive and beta-hCG is slightly elevated at 47. Patient states that she is a G6, P4 with 2 miscarriages. Her last resulted in her 75-[id number] child. 03/16/19 18:22 Updated patient on plan. Patient's beta quant is only 27 therefore low suspicion that an IUP could be visualized. Sound shows cholelithiasis without cholecystitis. Common bile duct is dilated at 9 mm. I updated the patient on her positive test and recommended she follow-up with OB for repeat beta quant in 48 hours or 2 days. Urinalysis ordered. I also recommended that the patient update her primary care doctor and GI doctor about the upcoming endoscopy as likely she will not be able to receive any anesthesia for this procedure secondary to the . 03/16/19 19:02 Patient understands that she needs follow-up with OB. UA is negative for infection. Patient given return precautions. - Vital Signs Vital signs: Temp Pulse Resp BP Pulse Ox 98.0 F 75 16 111/65 100 03/16/19 15:42 03/16/19 15:42 03/16/19 15:42 03/16/19 15:42 03/16/19 15:42 - Laboratory Result Diagrams: 03/16/19 16:00 03/16/19 16:00 Laboratory results interpreted by me: 03/16/19 03/16/19 03/16/19 16:00 16:00 16:09 WBC 13.7 H Absolute Neuts (auto) 10.8 H Seg Neutrophils % 79.1 H AST 47 H Beta HCG, Quant 27.61 H Urine Blood SMALL H Ur Leukocyte Esterase TRACE H Discharge - Discharge Clinical Impression: First trimester , Nausea Abdominal pain Qualifiers: Abdominal location: upper abdomen, unspecified Qualified Code(s): R10.10 - Upper abdominal pain, unspecified Condition: Good Disposition: HOME, SELF-CARE Instructions: Abdominal Pain ([facility]), Antinausea Medication ([facility]), Low-Fat Diet ([facility]) Additional Instructions: It is important that you notify your primary care doctor as well as your stock preparer that plans on doing your endoscopy that you are . It is also important that you follow-up with OB in 2 days (48 hours) to have a repeat beta-hCG performed. Return to the ED if you develop worsening abdominal pain. Are unable to keep down food or drink, or any other concerning symptoms. Referrals: MAEVE SWANN NP [Primary Care Provider] - Follow up as needed
[2019-03-16 18:30] LABS: APPEARANCE,URINE SLIGHTLY-CLOUDY; BILIRUBIN,URINE NEGATIVE (NEGATIVE); COLOR,URINE YELLOW; GLUCOSE, URINE NEGATIVE (NEGATIVE); KETONES,URINE NEGATIVE (NEGATIVE); LEUKOCYTE ESTERASE,URINE TRACE (NEGATIVE); NITRITE,URINE NEGATIVE (NEGATIVE); PROTEIN,URINE NEGATIVE (NEGATIVE); URINE SPECIFIC GRAVITY 1.021; UROBILINOGEN,URINE NEGATIVE mg/dL (<2.0)
[2019-03-16 18:39] LABS: ADD MANUAL MICROSCOPIC YES
[2019-03-16 19:26] VITALS: BP 114/68
== END 2019-03-16 19:25 | disposition home or self-care (01) ==
LOC: ER 15:12
DX: O26.891 Other specified pregnancy related conditions, first trimester (principal); R10.10 Upper abdominal pain, unspecified; R11.0 Nausea; Z3A.01 Less than 8 weeks gestation of pregnancy
CPT/HCPCS: 36415; 84702; 83690; 85025; 80053; 81001; 76705; J3490; 99284

== ENCOUNTER 2019-03-19 11:32 | Day surgery (SDC) | payer SELFPAY ==
[2019-03-19] MEDS ORDERED: DIPHENHYDRAMINE HCL 50 MG/ML VIAL ONE (12:07)
[2019-03-19] MEDS ORDERED: FLUMAZENIL INJ 0.5 MG/5 ML VIAL ONE (12:07)
[2019-03-19] MEDS ORDERED: EPINEPHRINE INJ 1 MG/10 ML DISP.SYRIN ONE (12:07)
[2019-03-19] MEDS ORDERED: ONDANSETRON HCL INJ/PF 4 MG/2 ML SDV ONE (12:07)
[2019-03-19] MEDS ORDERED: NALOXONE HCL INJ/PF 0.4 MG/1 ML SDV ONE (12:07)
[2019-03-19] MEDS ORDERED: GLUCAGON,HUMAN RECOMB 1 MG INJ ONE (12:07)
[2019-03-19] MEDS: MIDAZOLAM 2 MG/2 ML INJ ONE ×2 (12:21→12:24)
--- NOTE | 2019-03-19 12:31 | Operative Report ---
Operative Report DATE OF SURGERY: 03/19/19 Operative Report: The risks benefits and alternatives of the procedure explained to the patient in detail and informed consent is obtained.A GIF Olympus video scope was inserted into the patient's mouth and hypopharynx ,the esophagus is identified intubated and insufflated ,the scope was then advanced through the esophagus stomach and duodenum, retroflexion maneuver is done ,the esophagus stomach and first and second portions of the duodenum examined. PREOPERATIVE DIAGNOSIS: Epigastric pain rule out peptic ulcer disease POSTOPERATIVE DIAGNOSIS: Gastritis status post biopsy. Small hiatal hernia OPERATION: EGD with biopsy SURGEON: ROLAND NAVAS ANESTHESIA: Moderate Sedation - 25 mg of Benadryl given IV x1; 2 mg of Versed given in 1 mg increments TISSUE REMOVED OR ALTERED: Gastric biopsy obtained without Helicobacter pylori COMPLICATIONS: None. ESTIMATED BLOOD LOSS: None. INTRAOPERATIVE FINDINGS: As noted above. PROCEDURE: Patient tolerated the procedure well. No immediate postprocedure complications are noted. Patient is discharged in good condition. Discharge date 03/19/2019. Discharge diet: Regular. Discharge activity: Regular. 2 to 3-week follow-up to discuss findings. Patient is instructed to call the office or proceed to the emergency room should there be any further questions. Wait on the pathology.
[2019-03-19 13:27] VITALS: BP 111/63
== END 2019-03-19 13:30 | disposition home or self-care (01) ==
LOC: END 11:32
PROVIDERS: ATTEND Internal Medicine Gastroenterology
DX: K29.50 Unspecified chronic gastritis without bleeding (principal); B96.81 Helicobacter pylori [H. pylori] as the cause of diseases classified elsewhere; R94.5 Abnormal results of liver function studies; K44.9 Diaphragmatic hernia without obstruction or gangrene
CPT/HCPCS: 43239; 88305 ×2; J2250; J0171; J1200; J1610; J2310; J2405; J3490

== ENCOUNTER 2019-03-30 16:22 | Emergency (ER) | payer SELFPAY ==
--- NOTE | 2019-03-30 16:53 | ER Document Report ---
ED Medical Screen (RME) - General Chief Complaint: Abdominal Pain Stated Complaint: ABDOMINAL PAIN/ Time Seen by Provider: 03/30/19 16:35 Primary Care Provider: MAEVE SWANN NP [Primary Care Provider] - Follow up as needed Notes: 28-year-old female presents to the emergency department with severe right upper quadrant abdominal pain. Patient was seen here 2 weeks ago and an abdominal ultrasound showed that she had multiple layering gallstones with no evidence of cholecystitis. Patient patient also discovered she was on that visit. Patient denies fevers but complains of chills, has severe right upper quadrant pain that radiates across to her left upper quadrant, nausea with no vomiting. Patient also states that she had some spotting when she urinated about 3 hours ago that she saw on the toilet. Of note, patient followed up with Dr. Crews, appliance adjuster, a stomach biopsy was performed and it appears that the immunostain was positive for H pylori. Please look at the report. Exam: Patient in acute distress bent over in the wheelchair, abdominal exam deferred in triage, lungs are clear to auscultation in all milligan, regular rhythm and tachycardia rate approximately 102 I have greeted and performed a rapid initial assessment of this patient. A comprehensive ED assessment and evaluation of the patient, analysis of test results and completion of medical decision making process will be conducted by an additional ED providers. TRAVEL OUTSIDE OF THE [place] IN LAST 30 DAYS: No - Related Data Allergies/Adverse Reactions: No Known Allergies Allergy (Verified 03/30/19 16:32) Home Medications: omeprazole. vitamin d Past Medical History - Social History Chew tobacco use (# tins/day): No Frequency of alcohol use: None Drug Abuse: None - Past Medical History Cardiac Medical History: Denies: Hx Coronary Artery Disease, Hx Heart Attack, Hx Hypertension Pulmonary Medical History: Denies: Hx Asthma, Hx Bronchitis, Hx COPD, Hx Pneumonia Neurological Medical History: Denies: Hx Cerebrovascular Accident, Hx Seizures Musculoskeltal Medical History: Denies Hx Arthritis Past Surgical History: Denies: Hx Hysterectomy - Immunizations Hx Diphtheria, Pertussis, Tetanus Vaccination: - UNSURE Physical Exam - Vital signs Vitals: Temp Pulse Resp BP Pulse Ox 98.6 F 102 H 18 111/65 100 03/30/19 16:28 03/30/19 16:28 03/30/19 16:28 03/30/19 16:28 03/30/19 16:28 Course - Vital Signs Vital signs: Temp Pulse Resp BP Pulse Ox 98.6 F 102 H 18 111/65 100 03/30/19 16:28 03/30/19 16:28 03/30/19 16:28 03/30/19 16:28 03/30/19 16:28 Doctor's Discharge - Discharge Referrals: MAEVE SWANN, CPAS [Primary Care Provider] - Follow up as needed
[2019-03-30 17:27] LABS: ABSOLUTE LYMPHOCYTES (AUTO) 0.8 10^3/uL (0.5-4.7); ABSOLUTE MONOCYTES (AUTO) 1.1 10^3/uL (0.1-1.4); ABSOLUTE NEUT (AUTO) 8.8 10^3/uL (1.7-8.2); BASOPHILS % (AUTO) 0.3 % (0-2); EOSINOPHILS % (AUTO) 0.3 % (0-6); LYMPHOCYTES % (AUTO) 7.6 % (13-45); MEAN CORPUSCULAR HEMOGLOBIN 30.5 pg (27.0-33.4); MEAN CORPUSCULAR HGB CONC 34.2 g/dL (32.0-36.0); MEAN CORPUSCULAR VOLUME 89 fl (80-97); MONOCYTES % (AUTO) 10.3 % (3-13); PLATELET COUNT 272 10^3/uL (150-450); SEGMENTED NEUTROPHILS % (AUTO) 81.5 % (42-78); TOTAL CELLS COUNTED % (AUTO) 100 %; WHITE BLOOD COUNT 10.8 10^3/uL (4.0-10.5)
[2019-03-30 17:52] LABS: APPEARANCE,URINE SLIGHTLY-CLOUDY; BILIRUBIN,URINE SMALL (NEGATIVE); COLOR,URINE AMBER; GLUCOSE, URINE NEGATIVE (NEGATIVE); KETONES,URINE NEGATIVE (NEGATIVE); LEUKOCYTE ESTERASE,URINE TRACE (NEGATIVE); NITRITE,URINE NEGATIVE (NEGATIVE); PROTEIN,URINE 30 mg/dL (NEGATIVE); URINE SPECIFIC GRAVITY 1.021
[2019-03-30 18:12] LABS: ALBUMIN 4.9 g/dL (3.5-5.0); ALKALINE PHOSPHATASE 234 U/L (38-126); ANION GAP 13 (5-19); ASPARTATE AMINO TRANSFERASE 335 U/L (14-36); BILIRUBIN,DIRECT 1.5 mg/dL (0.0-0.4); BILIRUBIN,TOTAL 2.1 mg/dL (0.2-1.3); BLOOD UREA NITROGEN 10 mg/dL (7-20); CARBON DIOXIDE 24 mmol/L (22-30); CHLORIDE 104 mmol/L (98-107); GLUCOSE 124 mg/dL (75-110); POTASSIUM 4.1 mmol/L (3.6-5.0); TOTAL PROTEIN 8.6 g/dL (6.3-8.2)
--- NOTE | 2019-03-30 19:32 | RADIOLOGY REPORT (SQ) ---
EXAM DESCRIPTION: U/S ABDOMEN LTD W/DOPPLER COMPLETED DATE/TIME: 03/30/2019 6:20 pm REASON FOR STUDY: RUQ pain, concern cholecystitis . The patient is 6 weeks . COMPARISON: Right upper quadrant ultrasound 03/16/2019. Pelvic ultrasound 03/30/2019. TECHNIQUE: Dynamic and static grayscale images acquired of the abdomen and recorded on PACS. Additio nal selected color Doppler and spectral images recorded. LIMITATIONS: None. FINDINGS: PANCREAS: The pancreas is partially obscured by overlying bowel gas. The visualized pancr eas in the midline is unremarkable. LIVER: The liver measures 16.7 cm. Echotexture normal. LIVER VASCULATURE: Normal directional flow of the main portal vein and hepatic veins. GALLBLADDER: Multiple stones are noted at the gallbladder. No gallbladder wall thickening or pericho lecystic fluid. ULTRASOUND-DETECTED RIVAS'S SIGN: Positive. INTRAHEPATIC DUCTS AND COMMON DUCT: No intrahepatic biliary ductal dilation. The common bile duct re [place] dilated to 9 mm. INFERIOR VENA CAVA: Patent. AORTA: No aneurysm at the visualized segments. RIGHT KIDNEY: Measures 11.2 cm in length. Normal echogenicity. No hydronephrosis. No calcifications. PERITONEAL AND RIGHT PLEURAL SPACE: No ascites or effusions. IMPRESSION: 1. Cholelithiasis with a positive sonographic Rivas's sign, in the appropriate clinic al setting, this may represent acute cholecystitis. 2. Persistent dilation of the common bile duct, choledocholithiasis cannot be excluded. Evaluation w ith MRCP may be worthwhile. TECHNICAL DOCUMENTATION: JOB ID: [id number] [place]-[id number] 2010 [employer]- All Rights Reserved Reading location - IP/workstation name: [email or web address]
--- NOTE | 2019-03-30 19:41 | RADIOLOGY REPORT (SQ) ---
EXAM DESCRIPTION: U/S OB TRANSVAG W/DOPPLER COMPLETED DATE/TIME: 03/30/2019 6:24 pm REASON FOR STUDY: + preg vaginal bleeding/spotting COMPARISON: None. TECHNIQUE: Transvaginal grayscale images acquired of the pelvis. Additional selected spectral and co [place] Doppler images recorded. All images stored on PACs. bHCG: Pending. CLINICAL DATES: 5 weeks 3 days LIMITATIONS: None. FINDINGS: FETUS: Single Living intrauterine . ULTRASOUND EGA: 6 weeks 0 days ULTRASOUND NASEEM: 11/23/2019 EFW: Not applicable less than 20 weeks. CRL: 0.32 cm FHR: 158 beats per minute. PLACENTA: Not yet developed due to early gestation. SUBCHORIONIC BLEED: Yes. SIZE OF BLEED: 1.0 x 0.4 x 0.8 cm UTERUS: The uterus measures 11.1 x 5.7 x 9.8 cm. CERVICAL LENGTH: The cervix measures 3.7 cm in length Closed. RIGHT ADNEXA: The right ovary measures 3.9 x 6.2 x 4.6 cm. Flow by Doppler was shown to the right ov harvey. There is a 3.3 cm cyst. LEFT ADNEXA: Ovary not identified due to poor acoustical window. FREE FLUID: Trace free pelvic fluid. IMPRESSION: 1. LIVING INTRAUTERINE .EGA 6 WEEKS 0 DAYS.SMALL SUBCHORIONIC HEMORRHAGE. 2. 3.3 CM CYST AT THE RIGHT OVARY. 3. NONVISUALIZED LEFT OVARY. Trimester of : First trimester - 0 to 13 weeks. TECHNICAL DOCUMENTATION: JOB ID: [id number] [place]-[id number] 2010 [employer]- All Rights Reserved Reading location - IP/workstation name: [email or web address]
--- NOTE | 2019-03-30 20:16 | ER Document Report ---
ED GI/ - General Chief Complaint: Abdominal Pain Stated Complaint: ABDOMINAL PAIN/ Time Seen by Provider: 03/30/19 16:35 Primary Care Provider: MAEVE SWANN NP [Primary Care Provider] - Follow up as needed Mode of Arrival: Ambulatory Information source: Patient Notes: Patient is an otherwise healthy 20-year-old female presenting to the emergency department with chief complaint of right upper quadrant and left lower quadrant abdominal pain that is been going on for approximately 2 weeks. Patient reports she was seen here approximately 14 days ago, diagnosed with gallstones. Encouraged to have her gallbladder removed and to follow a low-fat, low residue diet. Patient reports she has been unable to tolerate any oral intake due to the severe pain. She states she gets severe pain even if she eats lettuce. She reports that she has had nausea without vomiting and has had chills but has not checked her temperature. TRAVEL OUTSIDE OF THE [place] IN LAST 30 DAYS: No - Related Data Allergies/Adverse Reactions: No Known Allergies Allergy (Verified 03/30/19 16:32) Home Medications: omeprazole. vitamin d Past Medical History - General Information source: Patient - Social History Smoking Status: Never Smoker Chew tobacco use (# tins/day): No Frequency of alcohol use: None Drug Abuse: None Family History: Reviewed & Not Pertinent Patient has suicidal ideation: No Patient has homicidal ideation: No - Medical History Medical History: Negative - Past Medical History Cardiac Medical History: Denies: Hx Coronary Artery Disease, Hx Heart Attack, Hx Hypertension Pulmonary Medical History: Denies: Hx Asthma, Hx Bronchitis, Hx COPD, Hx Pneumonia Neurological Medical History: Denies: Hx Cerebrovascular Accident, Hx Seizures Musculoskeletal Medical History: Denies Hx Arthritis Surgical Hx: Negative Past Surgical History: Denies: Hx Hysterectomy - Immunizations Immunizations up to date: Yes Hx Diphtheria, Pertussis, Tetanus Vaccination: - UNSURE Review of Systems - Review of Systems Constitutional: Chills EENT: No symptoms reported Cardiovascular: No symptoms reported Respiratory: No symptoms reported Gastrointestinal: Abdominal pain, Nausea Genitourinary: No symptoms reported Female Genitourinary: No symptoms reported Musculoskeletal: No symptoms reported Skin: No symptoms reported Hematologic/Lymphatic: No symptoms reported Neurological/Psychological: No symptoms reported Physical Exam - Vital signs Vitals: Temp Pulse Resp BP Pulse Ox 98.6 F 102 H 18 111/65 100 03/30/19 16:28 03/30/19 16:28 03/30/19 16:28 03/30/19 16:28 03/30/19 16:28 - Notes Notes: PHYSICAL EXAMINATION: GENERAL: Well-appearing, well-nourished. HEAD: Atraumatic, normocephalic. EYES: Pupils equal round and reactive to light, extraocular movements intact, conjunctiva are normal. ENT: Nares patent, oropharynx clear without exudates. Moist mucous membranes. NECK: Normal range of motion, supple without lymphadenopathy LUNGS: Breath sounds clear to auscultation bilaterally and equal. No wheezes rales or rhonchi. HEART: Regular rate and rhythm without murmurs ABDOMEN: Soft, nondistended abdomen. Tenderness to palpation to right upper quadrant, epigastric area and left lower quadrant. Female : No CVA tenderness. Musculoskeletal: Normal range of motion, no pitting or edema. No cyanosis. NEUROLOGICAL: Cranial nerves grossly intact. Normal speech, normal gait. Normal sensory, motor exams PSYCH: Normal mood, normal affect. SKIN: Warm, Dry, normal turgor, no rashes or lesions noted. Course - Re-evaluation Re-evalutation: Laboratory 03/30/19 03/30/19 03/30/19 17:16 17:16 17:16 WBC 10.8 H RBC 4.60 Hgb 14.0 Hct 41.0 MCV 89 MCH 30.5 MCHC 34.2 RDW 13.0 Plt Count 272 Lymph % (Auto) 7.6 L [place] % (Auto) 10.3 Eos % (Auto) 0.3 Baso % (Auto) 0.3 Absolute Neuts (auto) 8.8 H Absolute Lymphs (auto) 0.8 Absolute Monos (auto) 1.1 Absolute Eos (auto) 0.0 Absolute Basos (auto) 0.0 Seg Neutrophils % 81.5 H Sodium 141.3 Potassium 4.1 Chloride 104 Carbon Dioxide 24 Anion Gap 13 BUN 10 Creatinine 0.58 Est GFR ( Amer) > 60 Est GFR (MDRD) Non-Af > 60 Glucose 124 H Calcium 10.0 Total Bilirubin 2.1 H Direct Bilirubin 1.5 H Neonat Total Bilirubin Not Reportable Neonat Direct Bilirubin Not Reportable Neonat Indirect Bili Not Reportable AST 335 H ALT 362 Alkaline Phosphatase 234 H Total Protein 8.6 H Albumin 4.9 Lipase 58803.6 H Beta HCG, Quant 92288.00 H Total Beta HCG POSITIVE Urine Color GLENN Urine Appearance SLIGHTLY-CLOUDY Urine pH 8.0 Ur Specific [place] 1.021 Urine Protein 30 H Urine Glucose (UA) NEGATIVE Urine Ketones NEGATIVE Urine Blood NEGATIVE Urine Nitrite NEGATIVE Urine Bilirubin SMALL H Urine Urobilinogen 2.0 H Ur Leukocyte Esterase TRACE H Urine WBC (Auto) 2 Urine RBC (Auto) 3 U Hyaline Cast (Auto) 1 Squamous Epi Cells Auto 14 Urine Mucus (Auto) RARE Urine Ascorbic Acid NEGATIVE Abdomen Ultrasound 03/30/19 16:46 IMPRESSION: 1. Cholelithiasis with a positive sonographic Rivas's sign, in the appropriate clinical setting, this may represent acute cholecystitis. 2. Persistent dilation of the common bile duct, choledocholithiasis cannot be excluded. Evaluation with MRCP may be worthwhile. Transvaginal US 03/30/19 16:46 IMPRESSION: 1. LIVING INTRAUTERINE .EGA 6 WEEKS 0 DAYS.SMALL SUBCHORIONIC HEMORRHAGE. 2. 3.3 CM CYST AT THE RIGHT OVARY. 3. NONVISUALIZED LEFT OVARY. Trimester of : First trimester - 0 to 13 weeks. 03/30/19 20:[address] Crain, on-call surgeon. Dr. Crain came to the bedside and evaluated patient. He recommends transfer As patient not only has cholecystitis but she also now has gallstone pancreatitis. ERCP required. 03/30/19 21:16 [facility] patient accepted by Dr. Huber Harvey. Patient will need both ERCP and cholecystectomy. 03/30/19 22:25 Bed assignment received, transport should be here within 15 minutes to transport patient. Patient is stable for transport at this time, she is currently resting in the stretcher, she declines any needs at this time. - Vital Signs Vital signs: Temp Pulse Resp BP Pulse Ox 98.0 F 64 18 120/65 100 03/30/19 22:38 03/30/19 22:38 03/30/19 16:28 03/30/19 22:38 03/30/19 22:38 - Laboratory Result Diagrams: 03/30/19 17:16 03/30/19 17:16 Laboratory results interpreted by me: 03/30/19 03/30/19 03/30/19 17:16 17:16 17:16 WBC 10.8 H Lymph % (Auto) 7.6 L Absolute Neuts (auto) 8.8 H Seg Neutrophils % 81.5 H Glucose 124 H Total Bilirubin 2.1 H Direct Bilirubin 1.5 H AST 335 H Alkaline Phosphatase 234 H Total Protein 8.6 H Lipase 66588.6 H Beta HCG, Quant 10444.00 H Urine Protein 30 H Urine Bilirubin SMALL H Urine Urobilinogen 2.0 H Ur Leukocyte Esterase TRACE H Discharge - Discharge Clinical Impression: Elevated LFTs, Intrauterine , Acute gallstone pancreatitis Condition: Good Disposition: [facility] Referrals: MAEVE SWANN NP [Primary Care Provider] - Follow up as needed
--- NOTE | 2019-03-30 20:47 | PDOC CONSULTATION ---
Consultation Consult Date: 03/30/19 Provider Consulted: BABS CRAIN Consult reason:: Acute abdominal pain History of Present Illness Admission Date/PCP: MAEVE SWANN NP Patient complains of: Acute abdominal pain History of Present Illness: IVETH STEVENSON is a 28 year old female Presents emergency department for the second time in 2 weeks complaining of acute onset abdominal pain nausea anorexia. Patient was seen at [facility] 2 weeks ago, found to have gallstones by ultrasonography and a dilated common bile duct of 9 mm. She was referred to gastroenterology for possible liver biopsy, and subsequently underwent upper endoscopy with a diagnosis of gastritis, small hiatal hernia by Dr. Lennon. During this time the patient was not referred to general surgery. Patient was started on proton pump inhibitor order without improvement. On March 16 patient's beta hCG was 27. Patient presents to the emergency department today with worsening abdominal pain,, lipase level of 15,800, and a beta hCG level of 101,000. Repeat gallbladder ultrasonography demonstrates multiple gallstones, and a dilated common bile duct. Surgery was consulted. Past Medical History Past Medical History: Gastritis; hiatal hernia; cholelithiasis Cardiac Medical History: Denies: Coronary Artery Disease, Myocardial Infarction, Hypertension Pulmonary Medical History: Denies: Asthma, Bronchitis, Chronic Obstructive Pulmonary Disease (COPD), Pneumonia Neurological Medical History: Denies: Seizures Musculoskeltal Medical History: Denies: Arthritis Hematology: Denies: Anemia Past Surgical History Past Surgical History: Denies: Hysterectomy Social History Information Source: Patient Smoking Status: Never Smoker Electronic Cigarette use?: No Frequency of Alcohol Use: None Hx Recreational Drug Use: No Family History Family History: None, Reviewed & Not Pertinent Parental Family History Reviewed: No Children Family History Reviewed: No Sibling(s) Family History Reviewed.: No Medication/Allergy Home Medications: Ergocalciferol (Vitamin D2) [Vitamin D] 1 tab PO DAILY 03/16/19 Omeprazole 20 mg PO DAILY 03/16/19 Allergies/Adverse Reactions: No Known Allergies Allergy (Verified 03/30/19 16:32) Review of Systems Constitutional: PRESENT: as per HPI Eyes: ABSENT: visual disturbances Ears: ABSENT: hearing changes Cardiovascular: ABSENT: chest pain, dyspnea on exertion, edema, orthropnea, palpitations Gastrointestinal: PRESENT: as per HPI Genitourinary: ABSENT: dysuria, hematuria Musculoskeletal: ABSENT: joint swelling Integumentary: ABSENT: rash, wounds Physical Exam Vital Signs: Temp Pulse Resp BP Pulse Ox 98.6 F 102 H 18 111/65 100 03/30/19 16:28 03/30/19 16:28 03/30/19 16:28 03/30/19 16:28 03/30/19 16:28 Intake & Output 03/29/19 03/30/19 03/31/19 06:59 06:59 06:59 Weight 83.461 kg General appearance: PRESENT: mild distress Head exam: PRESENT: normocephalic Mouth exam: PRESENT: dry mucosa Neck exam: PRESENT: full ROM Respiratory exam: PRESENT: clear to auscultation fadi Cardiovascular exam: PRESENT: RRR Pulses: PRESENT: normal carotid pulses, normal radial pulses, normal femoral pulses, normal dorsalis pedis pul Rectal exam: PRESENT: other - Bowel sounds hypoactive; no hernia; epigastric and back tenderness to moderate palpation Musculoskeletal exam: PRESENT: full ROM Neurological exam: PRESENT: oriented to person, oriented to place, oriented to time, oriented to situation Psychiatric exam: PRESENT: anxious Results Laboratory Results: 03/30/19 17:16 03/30/19 17:16 03/30/19 03/30/19 03/30/19 17:16 17:16 17:16 WBC 10.8 H RBC 4.60 Hgb 14.0 Hct 41.0 MCV 89 MCH 30.5 MCHC 34.2 RDW 13.0 Plt Count 272 Seg Neutrophils % 81.5 H Sodium 141.3 Potassium 4.1 Chloride 104 Carbon Dioxide 24 Anion Gap 13 BUN 10 Creatinine 0.58 Est GFR ( Amer) > 60 Glucose 124 H Calcium 10.0 Total Bilirubin 2.1 H AST 335 H Alkaline Phosphatase 234 H Total Protein 8.6 H Albumin 4.9 Lipase 35967.6 H Urine Color GLENN Urine Appearance SLIGHTLY-CLOUDY Urine pH 8.0 Ur Specific [place] 1.021 Urine Protein 30 H Urine Glucose (UA) NEGATIVE Urine Ketones NEGATIVE Urine Blood NEGATIVE Urine Nitrite NEGATIVE Ur Leukocyte Esterase TRACE H Urine WBC (Auto) 2 Urine RBC (Auto) 3 Impressions: Abdomen Ultrasound 03/30/19 16:46 IMPRESSION: 1. Cholelithiasis with a positive sonographic Rivas's sign, in the appropriate clinical setting, this may represent acute cholecystitis. 2. Persistent dilation of the common bile duct, choledocholithiasis cannot be excluded. Evaluation with MRCP may be worthwhile. Transvaginal US 03/30/19 16:46 IMPRESSION: 1. LIVING INTRAUTERINE .EGA 6 WEEKS 0 DAYS.SMALL SUBCHORIONIC HEMORRHAGE. 2. 3.3 CM CYST AT THE RIGHT OVARY. 3. NONVISUALIZED LEFT OVARY. Trimester of : First trimester - 0 to 13 weeks. Status: Image reviewed by nd - Ultrasonography reviewed by Dr. Crain Assessment & Plan - Diagnosis (1) Acute gallstone pancreatitis Is this a current diagnosis for this admission?: Yes Plan: Impression: Complicated cholelithiasis, specifically gallstone pancreatitis as evidenced by clinical history, physical examination, elevated liver function studies including total bilirubin of 2.1, lipase level of 15,800, and gallbladder ultrasonography showing dilated common duct at 9 mm. Patient is in pain but not septic. Entire clinical situation complicated by patient with 6- week old intrauterine . Recommendations: 1. Explained pathophysiology of gallstone pancreatitis to patient and family. 2. Patient needs to be kept n.p.o., on IV fluids and undergo ERCP, sphincterotomy, possible stone extraction. Those capabilities are not available at [facility] over the weekend. Therefore the patient needs to be transferred to either [place] or [place] for this level of care. ThiS was discussed with the emergency department staff who will go on the transfer pro cess 3. The patient will also need frequent laparoscopic cholecystectomy. This will require general anesthesia, as may the ERCP 4. Patient has been told that her mid first trimester intrauterine is in jeopardy because of patient's need to undergo varying degrees of anesthes (2) Intrauterine Is this a current diagnosis for this admission?: Yes (3) Gastritis Is this a current diagnosis for this admission?: Yes (4) Elevated LFTs Is this a current diagnosis for this admission?: Yes - Time Time Spent: 50 to 70 Minutes Smoking Cessation Education: over 10 minutes Medications reviewed and adjusted accordingly: Yes Anticipated discharge: Home
[2019-03-30] MEDS ORDERED: NORMAL SALINE 1000 ML 1,000 ML IV ONE (21:00)
[2019-03-30] MEDS ORDERED: ACETAMINOPHEN 1,000 MG/100 ML RTUPB IV ONE (21:00)
[2019-03-30] MEDS ORDERED: PIPERACILLIN/TAZOBACTAM 3.375 GM VIAL IV ONE (21:17)
[2019-03-30] MEDS ORDERED: HYDROCODONE/ACETAMINOPHEN 5-325 MG (6 TAB/ER DISP) PO PRN (21:17)
[2019-03-30 21:44] VITALS: BP 120/65
== END 2019-03-30 23:00 | disposition short-term general hospital (02) ==
LOC: ER 16:22
DX: O99.611 Diseases of the digestive system complicating pregnancy, first trimester (principal); K85.10 Biliary acute pancreatitis without necrosis or infection; O26.891 Other specified pregnancy related conditions, first trimester; R79.89 Other specified abnormal findings of blood chemistry; R10.9 Unspecified abdominal pain; R11.0 Nausea; Z3A.01 Less than 8 weeks gestation of pregnancy
CPT/HCPCS: 99283; 96361; 96374; 36415; 84702; 83690; 85025; 80053; 81001; 76817; 76705; 93976; J7030; J2543; J0131

== ENCOUNTER 2019-06-03 15:21 | Emergency (ER) | payer OTHER ==
--- NOTE | 2019-06-03 15:34 | ER Document Report ---
ED Medical Screen (RME) - General Chief Complaint: Vaginal Bleeding Stated Complaint: VAGINAL BLEEDING Time Seen by Provider: 06/03/19 15:29 Primary Care Provider: MAEVE SWANN NP [Primary Care Provider] - Follow up as needed TRAVEL OUTSIDE OF THE [place] IN LAST 30 DAYS: No - HPI Notes: 06/03/19 15:33 Patient is a 28-year-old female proximally 16 weeks who presents c omplaining of bleeding that started today. She is not having any significant pain. She is able to eat and drink without difficulty. No fever. No abdominal pain otherwise. I have treated and performed a rapid initial assessment of this patient. A comprehensive ED assessment and evaluation of the patient, analysis of test results and completion of medical decision making process will be conducted by additional ED providers. PHYSICAL EXAMINATION: GENERAL: Well-appearing, well-nourished and in no acute distress. A&Ox4. Answers questions appropriately. - Related Data Allergies/Adverse Reactions: No Known Allergies Allergy (Verified 03/30/19 16:32) Past Medical History - Past Medical History Cardiac Medical History: Denies: Hx Coronary Artery Disease, Hx Heart Attack, Hx Hypertension Pulmonary Medical History: Denies: Hx Asthma, Hx Bronchitis, Hx COPD, Hx Pneumonia Neurological Medical History: Denies: Hx Cerebrovascular Accident, Hx Seizures Musculoskeltal Medical History: Denies Hx Arthritis Past Surgical History: Denies: Hx Hysterectomy - Immunizations Immunizations up to date: Yes Hx Diphtheria, Pertussis, Tetanus Vaccination: - UNSURE Physical Exam - Vital signs Vitals: Temp Pulse Resp BP Pulse Ox 97.6 F 95 18 105/68 98 06/03/19 15:06/03/19 15:06/03/19 15:06/03/19 15:06/03/19 15:26 Course - Vital Signs Vital signs: Temp Pulse Resp BP Pulse Ox 97.6 F 95 18 105/68 98 06/03/19 15:06/03/19 15:06/03/19 15:06/03/19 15:06/03/19 15:26 Doctor's Discharge - Discharge Referrals: MAEVE SWANN NP [Primary Care Provider] - Follow up as needed
[2019-06-03 16:15] LABS: ABSOLUTE EOSINOPHILS # (AUTO) 0.1 10^3/uL (0.0-0.6); ABSOLUTE LYMPHOCYTES (AUTO) 1.7 10^3/uL (0.5-4.7); ABSOLUTE MONOCYTES (AUTO) 0.6 10^3/uL (0.1-1.4); ABSOLUTE NEUT (AUTO) 4.8 10^3/uL (1.7-8.2); BASOPHILS % (AUTO) 0.2 % (0-2); HEMATOCRIT 35.9 % (36.0-47.0); HEMOGLOBIN 12.5 g/dL (12.0-15.5); LYMPHOCYTES % (AUTO) 24.3 % (13-45); MEAN CORPUSCULAR HEMOGLOBIN 31.1 pg (27.0-33.4); MEAN CORPUSCULAR HGB CONC 34.7 g/dL (32.0-36.0); MEAN CORPUSCULAR VOLUME 90 fl (80-97); PLATELET COUNT 259 10^3/uL (150-450); RED BLOOD COUNT 4.01 10^6/uL (3.72-5.28); RED CELL DISTRIBUTION WIDTH 13.8 % (11.5-14.0); SEGMENTED NEUTROPHILS % (AUTO) 66.5 % (42-78); TOTAL CELLS COUNTED % (AUTO) 100 %; WHITE BLOOD COUNT 7.2 10^3/uL (4.0-10.5)
[2019-06-03 16:20] LABS: APPEARANCE,URINE SLIGHTLY-CLOUDY; BILIRUBIN,URINE NEGATIVE (NEGATIVE); COLOR,URINE YELLOW; GLUCOSE, URINE NEGATIVE (NEGATIVE); KETONES,URINE NEGATIVE (NEGATIVE); PROTEIN,URINE NEGATIVE (NEGATIVE); URINE SPECIFIC GRAVITY 1.015; UROBILINOGEN,URINE NEGATIVE mg/dL (<2.0)
[2019-06-03 16:33] LABS: ALBUMIN 4.2 g/dL (3.5-5.0); ALKALINE PHOSPHATASE 57 U/L (38-126); ANION GAP 9 (5-19); ASPARTATE AMINO TRANSFERASE 31 U/L (14-36); BILIRUBIN,TOTAL 0.3 mg/dL (0.2-1.3); BLOOD UREA NITROGEN 7 mg/dL (7-20); CALCIUM 9.6 mg/dL (8.4-10.2); CARBON DIOXIDE 24 mmol/L (22-30); CHLORIDE 105 mmol/L (98-107); GLUCOSE 108 mg/dL (75-110); POTASSIUM 3.8 mmol/L (3.6-5.0); TOTAL PROTEIN 7.4 g/dL (6.3-8.2)
--- NOTE | 2019-06-03 16:35 | ER Document Report ---
ED GI/ - General Chief Complaint: Vaginal Bleeding Stated Complaint: VAGINAL BLEEDING Time Seen by Provider: 06/03/19 15:29 Primary Care Provider: MAEVE SWANN NP [NO LOCAL MD] - Follow up as needed Notes: CHIEF COMPLAINT: Vaginal bleeding and HPI: 28-year-old female who is a G5, presenting to the emergency department complaining of vaginal bleeding that began approximately an hour ago. Patient did not have any cramping with onset of the bleeding. Denies nausea vomiting or fever. Patient states she is 16 weeks by ultrasound. Did not call her TECHNICAL LEAD prior to coming to the emergency department today. Denies back pain. Patient states she has not yet soaked a menstrual pad as she came over immediately with onset of the bleeding ROS: See HPI - all other systems were reviewed and are otherwise negative Constitutional: no fever or recent illness : no dysuria, no vaginal discharge, + vaginal bleeding Integumentary: no rash MEDICATIONS: I agree with the patient medications as charted by the RN. ALLERGIES: I agree with the allergies as charted by the RN. PAST MEDICAL HISTORY/PAST SURGICAL HISTORY: Reviewed and agree as charted by RN. SOCIAL HISTORY: Reviewed and agree as charted by RN. FAMILY HISTORY: No significant familial comorbid conditions directly related to patient complaint EXAM: Reviewed vital signs as charted by RN. CONSTITUTIONAL: Alert and oriented and responds appropriately to questions. Well-appearing; well-nourished. 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 External genitalia normal. No skin lesions noted. Pelvic Exam: Small amount of dark red blood in the vaginal vault is noted without clots. No purulent discharge. Cervix appears normal. Cervical loss is closed. No CMT. No lesions or masses. Uterus enlarged consistent with 16-week gestation and non tender. Right/Left adnexa normal size and non tender. BACK: The back appears normal and is non-tender to palpation, there is no CVA tenderness EXT: Normal ROM in all joints; non-tender to palpation; no cyanosis, no effusions, no edema SKIN: Normal color for age and race; warm; dry; good turgor; no acute lesions noted NEURO: Moves all extremities equally; Motor and sensory function intact PSYCH: The patient's mood and manner are appropriate. Grooming and personal hygiene are appropriate. MDM: 28-year-old female presenting with vaginal bleeding and . Patient is blood type B+ by review of her records. Lab work and ultrasound pending TRAVEL OUTSIDE OF THE [place] IN LAST 30 DAYS: No - Related Data Allergies/Adverse Reactions: No Known Allergies Allergy (Verified 03/30/19 16:32) Past Medical History - Social History Smoking Status: Never Smoker Family History: Reviewed & Not Pertinent Patient has suicidal ideation: No Patient has homicidal ideation: No - Past Medical History Cardiac Medical History: Denies: Hx Coronary Artery Disease, Hx Heart Attack, Hx Hypertension Pulmonary Medical History: Denies: Hx Asthma, Hx Bronchitis, Hx COPD, Hx Pneumonia Neurological Medical History: Denies: Hx Cerebrovascular Accident, Hx Seizures Musculoskeletal Medical History: Denies Hx Arthritis Past Surgical History: Denies: Hx Hysterectomy - Immunizations Immunizations up to date: Yes Hx Diphtheria, Pertussis, Tetanus Vaccination: - UNSURE Physical Exam - Vital signs Vitals: Temp Pulse Resp BP Pulse Ox 97.6 F 95 18 105/68 98 06/03/19 15:26 06/03/19 15:06/03/19 15:06/03/19 15:06/03/19 15:26 Course - Re-evaluation Re-evalutation: 06/03/19 17:37 Ultrasound does not show acute emergent abnormalities. Patient cervical loss is closed. Will give patient bleeding precautions have her follow-up with her TECHNICAL LEAD tomorrow. Patient hemoglobin and hematocrit are stable - Vital Signs Vital signs: Temp Pulse Resp BP Pulse Ox 97.6 F 95 18 105/68 98 06/03/19 15:06/03/19 15:06/03/19 15:06/03/19 15:26 06/03/19 15:26 - Laboratory Result Diagrams: 06/03/19 15:56 06/03/19 15:56 Laboratory results interpreted by me: 06/03/19 06/03/19 06/03/19 15:56 15:56 15:56 Hct 35.9 L Creatinine 0.49 L Urine Blood LARGE H Leukocyte Esterase Rfl TRACE H Discharge - Discharge Clinical Impression: Threatened miscarriage Condition: Stable Disposition: HOME, SELF-CARE Instructions: Threatened Miscarriage ([facility]) Additional Instructions: 1. follow up with OB for further evaluation and treatment, call for appt. 2. return to the ED for any worsening/onset of abdominal pain, vomiting or vaginal bleeding where you are saturating > 1 pad per hour for 2 consecutive hours Referrals: MAEVE SWANN NP [NO LOCAL MD] - Follow up as needed
--- NOTE | 2019-06-03 16:35 | RADIOLOGY REPORT (SQ) ---
EXAM DESCRIPTION: U/S OB LIMITED COMPLETED DATE/TIME: 06/03/2019 4:23 pm REASON FOR STUDY: bleeding, approx 16wks preg COMPARISON: None. TECHNIQUE: Limited transabdominal grayscale ultrasound for evaluation of specific requested obstetri elsi parameters. LIMITATIONS: None. FINDINGS: CERVICAL LENGTH: 3.6 cm. Closed. LV P: 4.3 cm. FHR: 158 beats per minute. PRESENTATION: Breech. PLACENTA: Anterior. There is a prominent placental Schulte. ANATOMY: Not assessed OTHER: Intrauterine gestation of 16 weeks 0 days with an estimated date of delivery of 11/18/2019. IMPRESSION: LIMITED OBSTETRICAL ULTRASOUND WITH MEASURED PARAMETERS DELINEATED ABOVE. Trimester of : Second trimester - 13 weeks 1 day to 27 weeks 6 days. TECHNICAL DOCUMENTATION: JOB ID: [id number]- All Rights Reserved Reading location - IP/workstation name: [email or web address]
[2019-06-03 17:25] LABS: BACTERIA (WET MOUNT) 3+ BACTERIA SEEN; EPITHELIALS (WET MOUNT) 3+ EPITHELIALS SEEN; RBCS (WET MOUNT) 1+ RBCS SEEN; T.VAGINALIS (WET MOUNT) NO TRICHOMONAS SEEN; WBCS (WET MOUNT) 1+ WBCS SEEN; YEAST (WET MOUNT) NO YEAST SEEN
[2019-06-03 18:00] VITALS: BP 108/55
[2019-06-03 18:56] LABS: CHLAM PCR NOT DETECTED (NOT DETECT)
== END 2019-06-03 18:14 | disposition home or self-care (01) ==
LOC: ER 15:21
DX: O20.0 Threatened abortion (principal); O23.592 Infection of other part of genital tract in pregnancy, second trimester; B96.89 Other specified bacterial agents as the cause of diseases classified elsewhere; Z3A.16 16 weeks gestation of pregnancy
CPT/HCPCS: 36415; 76815; 80053; 81001; 85025; 87210; 87491; 87591; 99284

== ENCOUNTER → 2019-07-29 | Outpatient (CLI) | payer SELFPAY ==
--- NOTE | 2019-07-29 16:22 | RADIOLOGY REPORT (SQ) ---
EXAM DESCRIPTION: U/S OB 14+ TRNABD 1GES W/O DOP COMPLETED DATE/TIME: 07/29/2019 4:04 pm REASON FOR STUDY: Z34.82 ENCOUNTER FOR SUPRVSN OF NORMAL , SECOND TRIMESTER Z34.82 ENCOUNT ER FOR SUPRVSN OF NORMAL , SECOND TRI COMPARISON: 06/03/2019 TECHNIQUE: Static and Dynamic grayscale imaging performed of gravid uterus using transabdominal appr oach. Additional selected color Doppler and spectral images recorded. All stored on PACS. LIMITATIONS: None. FINDINGS: FETUSES SEEN:1 EGA: 23 weeks 6 days. Calculated using BPD,FL,HC,AC documented on images. No discrepancy with clinic al dates. NASEEM: 11/19/2019 EFW: 644 g grams PERCENTILE: 41st CONNIE: 13 cm PLACENTA: Anterior location. Grade 1. Placental Schulte is noted measured at 4.3 x 4.6 cm. PRESENTATION: Cephalic. ANATOMY: HEART RATE: 152 beats per minute. FOUR CHAMBER HEART: Visualized. THREE VESSEL CORD: Yes. CORD INSERTION: Visualized. KIDNEYS AND BLADDER: Visualized. Appear normal. STOMACH: Visualized. Appears normal. SPINE: Normal as visualized. BRAIN AND LATERAL VENTRICLES: Visualized. Appear normal. OTHER: No other significant finding. MATERNAL ADNEXA: Maternal ovaries not visualized. CERVICAL LENGTH: 2.4 cm. Closed. OTHER: No other significant finding. IMPRESSION: LIVING INTRAUTERINE . ESTIMATED GESTATIONAL AGE 23 WEEKS 6 DAYS. NO VISUALIZED ANOMALIES. Trimester of : Second trimester - 13 weeks 1 day to 27 weeks 6 days. TECHNICAL DOCUMENTATION: JOB ID: [id number] 2010 [employer]- All Rights Reserved Reading location - IP/workstation name: [email or web address]
== END ==
LOC: RAD 15:06
PROVIDERS: ATTEND Midwife
DX: Z34.82 Encounter for supervision of other normal pregnancy, second trimester (principal)
CPT/HCPCS: 76805

== ENCOUNTER → 2019-10-08 | Outpatient (CLI) | payer SELFPAY ==
--- NOTE | 2019-10-08 12:50 | RADIOLOGY REPORT (SQ) ---
EXAM DESCRIPTION: U/S OB LIMITED IMAGES COMPLETED DATE/TIME: 10/08/2019 10:01 am REASON FOR STUDY: ENCOUNTER FOR SUPRVSN OF NORMAL , THIRD TRIMESTER (Z34.83) Z34.[address] FOR SUPRVSN OF NORMAL , THIRD TRIM COMPARISON: 07/29/2019 TECHNIQUE: Limited transabdominal grayscale ultrasound for evaluation of specific requested obstetri elsi parameters. LIMITATIONS: None. FINDINGS: CERVICAL LENGTH: Not seen. CONNIE: 11.3 cm. Cm. FHR: 152 beats per minute. PRESENTATION: Cephalic. PLACENTA: Anterior. There are some placental lakes. ANATOMY: Not assessed OTHER: Gestational age 34 weeks 2 days. Estimated date of delivery is 11/17/2019 estimated body weight 2229 g, 54th percentile. IMPRESSION: LIMITED OBSTETRICAL ULTRASOUND WITH MEASURED PARAMETERS DELINEATED ABOVE. Trimester of : Third trimester - 28 weeks to delivery. TECHNICAL DOCUMENTATION: JOB ID: [id number] 2010 [employer]- All Rights Reserved Reading location - IP/workstation name: [email or web address]
== END ==
LOC: RAD 09:27
PROVIDERS: ATTEND Midwife
DX: Z34.83 Encounter for supervision of other normal pregnancy, third trimester (principal)
CPT/HCPCS: 76815

== ENCOUNTER 2019-12-02 15:00 | Inpatient (IN) | payer SELFPAY ==
[2019-12-02] MEDS ORDERED: RINGERS SOLUTION,LACTATED 1,000 ML IV ONE (15:25)
[2019-12-02] MEDS ORDERED: RINGERS SOLUTION,LACTATED 1,000 ML IV PRN (15:25)
[2019-12-02 15:50] LABS: APPEARANCE,URINE CLOUDY; BILIRUBIN,URINE NEGATIVE (NEGATIVE); COLOR,URINE AMBER; GLUCOSE, URINE NEGATIVE (NEGATIVE); KETONES,URINE TRACE mg/dL (NEGATIVE); LEUKOCYTE ESTERASE,URINE TRACE (NEGATIVE); NITRITE,URINE NEGATIVE (NEGATIVE); PROTEIN,URINE 100 mg/dL (NEGATIVE); URINE SPECIFIC GRAVITY 1.028
[2019-12-02] MEDS ORDERED: MISOPROSTOL 0.2 MG TABLET ONE (16:03)
[2019-12-02] MEDS ORDERED: OXYTOCIN 10 UNIT/ML VIAL ONE (16:03)
[2019-12-02] MEDS ORDERED: OXYTOCIN/0.9 % SODIUM CHLORIDE 30 UNIT/500 ML RTUINJ ONE (16:03)
[2019-12-02] MEDS ORDERED: LIDOCAINE 1% INJ-PF (10 MG/ML) 30 ML SDV ONE (16:03)
[2019-12-02 16:08] LABS: URINE AMPHETAMINES SCREEN NEGATIVE; URINE BARBITURATES SCREEN NEGATIVE; URINE BENZODIAZEPINES SCREEN NEGATIVE; URINE COCAINE SCREEN NEGATIVE; URINE MARIJUANA (THC) SCREEN NEGATIVE; URINE METHADONE SCREEN NEGATIVE; URINE PHENCYCLIDINE SCREEN NEGATIVE
--- NOTE | 2019-12-02 16:15 | Admission Physical ---
Datetime Report Generated by CPN: 12/02/2019 16:14 CURRENT ADMISSION Chief Complaint: Suspected Ruptured Membranes Indication for Induction: Not Applicable Admit Impression : Term, Intrauterine ; No Active Labor; Ruptured Membranes Admit Impression- Other: Positive for SROM-unknown when she ruptured Admit Plan: Initiate Labor Protocol ALLERGIES Medication Allergies: No Medication Allergies: No Known Allergies (03/30/2019) Latex: No Latex Allergies Food Allergies: none Environmental Allergies: none OBSTETRICAL HISTORY EDC: 11/27/2019 00:00 : 7 Para: 4 Term: 4 : 0 SAB: 2 IAB: 0 Livin Macrosomia: Unknown Current Procedures: Ultrasound; NST Obstetrical History Comments: G-1 SAB with D_C- required blood transfusion G-2 -no complications male G-3 -no complications. female G-4 SAB G-5 -no complications- female G-6SVD-no complications- female G-7 current PHYSICAL EXAM General: Normal HEENT: Normal Neurologic: Normal Thyroid: Deferred Heart: Normal Lungs: Normal Breast: Deferred Back: Normal Abdomen: Normal Genitourinary Exam: Deferred Extremities: Normal DTRs: Normal Pelvic Type: Not Done Physical Exam Comments: Gravid VAGINAL EXAM Dilatation: 6 Effacement: 80 MEMBRANES Membranes: Ruptured FETUS A EGA: 40.5 Monitoring: External US FHR- Baseline: 130 Variability: Moderate 6-25bpm Accelerations: 15X15 FHR Category: Category I Admit Comment: 40w 5d Proven for 8+ lbs-all vaginal births GBS negative Actim Prom-positive for SROM-time of rupture not known per patient All care done at [facility]-records on chart Plan: Admit. Anticipate INFORMED CONSENT Assignment: Cynthia Ruff MD Signature: with User ID: [email or web address] : with User ID: [email or web address] : I personally evaluated and examined the patient in conjunction with the MLP and agree with the assessment, treatment plan and disposition.
--- NOTE | 2019-12-02 16:39 | L&D Progress Notes ---
PROGRESS NOTES Datetime Report Generated by CPN: 12/02/2019 16:39 PROGRESS NOTE Impression: Reassuring Heart Rate Procedures: Sterile Vag Exam Plan: Continue Present Management Comment: Addendum to H_P-she is a . She had a cholecystectomy in at [facility] and possibly ahd pancreatitis. She reortedly was seen at [facility] last wk and had sono with EFW of ? 9 lbs. SVE w rupture of forebag-clear fluid. VAGINAL EXAM Dilatation: 6 Effacement: 80 LAST VAGINAL EXAM-NURSING Nursing Exam Dilitation: 5-6 Nursing Exam Effacement: 80 Nursing Exam Station: -2 MEMBRANES Membranes: Ruptured FETUS A : 40.5 SIGNATURE SIGNATURE: [id number] Assignment: Cynthia Ruff MD Signature: with User ID: [email or web address] : with User ID: [email or web address] : I personally evaluated and examined the patient in conjunction with the MLP and agree with the assessment, treatment plan and disposition.
[2019-12-02 18:23] LABS: ABSOLUTE LYMPHOCYTES (AUTO) 1.5 10^3/uL (0.5-4.7); ABSOLUTE MONOCYTES (AUTO) 0.5 10^3/uL (0.1-1.4); ABSOLUTE NEUT (AUTO) 3.9 10^3/uL (1.7-8.2); BASOPHILS % (AUTO) 0.3 % (0-2); EOSINOPHILS % (AUTO) 0.6 % (0-6); HEMATOCRIT 35.3 % (36.0-47.0); MEAN CORPUSCULAR HEMOGLOBIN 30.7 pg (27.0-33.4); MEAN CORPUSCULAR HGB CONC 34.1 g/dL (32.0-36.0); MEAN CORPUSCULAR VOLUME 90 fl (80-97); MONOCYTES % (AUTO) 8.6 % (3-13); PLATELET COUNT 218 10^3/uL (150-450); RED BLOOD COUNT 3.92 10^6/uL (3.72-5.28); RED CELL DISTRIBUTION WIDTH 14.4 % (11.5-14.0); SEGMENTED NEUTROPHILS % (AUTO) 65.5 % (42-78); TOTAL CELLS COUNTED % (AUTO) 100 %
[2019-12-02] MEDS ORDERED: EPHEDRINE SULFATE INJ 50 MG/1 ML AMPULE ONE (19:58)
[2019-12-02] MEDS ORDERED: BUPIVACAINE HCL 0.25 % INJ/PF (2.5 MG/1 ML) 30 ML VIAL ONE (19:59)
[2019-12-02] MEDS ORDERED: FENTANYL/BUPIVACAINE/NS/PF 300 MCG/150 ML RTUINJ EPI ONE (19:59)
[2019-12-02] MEDS ORDERED: NA PHOS,M-B/NA PHOS,DI-BA (ADULT) 133 ML ENEMA PR PRN (22:06)
[2019-12-02] MEDS ORDERED: DIPHENHYDRAMINE HCL 25 MG CAPSULE PO PRN (22:06)
[2019-12-02] MEDS ORDERED: PROMETHAZINE HCL INJ 25 MG/1 ML VIAL IV PRN (22:06)
[2019-12-02] MEDS ORDERED: MISOPROSTOL 0.2 MG TABLET PO PRN (22:06)
[2019-12-02] MEDS ORDERED: GLYCERIN/WITCH HAZEL LEAF 1 EACH MED..WIPE TP PRN (22:06)
[2019-12-02] MEDS ORDERED: MEASLES,MUMPS&RUBELLA VACC/PF 0.5 ML VIAL SUBCUT PRN (22:06)
[2019-12-02] MEDS ORDERED: OXYTOCIN/0.9 % SODIUM CHLORIDE 30 UNIT/500 ML RTUINJ IV PRN (22:06)
[2019-12-02] MEDS ORDERED: ZOLPIDEM TARTRATE 5 MG TABLET PO PRN (22:06)
[2019-12-02] MEDS ORDERED: ACETAMINOPHEN WITH CODEINE #3 TABLET PO PRN ×2 (22:06)
[2019-12-02] MEDS ORDERED: PSEUDOEPHEDRINE HCL 30 MG TABLET PO PRN (22:06)
[2019-12-02] MEDS ORDERED: DIBUCAINE 1% OINTMENT 28 GM TP PRN (22:06)
[2019-12-02] MEDS ORDERED: DIPH/PERTUSS(ACELL)/TETANUS VAC/PF 0.5 ML SYR (>=10YO) IM PRN (22:06)
[2019-12-02] MEDS ORDERED: PROMETHAZINE HCL 25 MG TABLET PO PRN (22:06)
[2019-12-02] MEDS ORDERED: PROMETHAZINE HCL 25 MG SUPP.RECT PR PRN (22:06)
[2019-12-02] MEDS ORDERED: MAGNESIUM HYDROXIDE SUSP 30 ML UDCUP PO PRN (22:06)
[2019-12-02] MEDS ORDERED: ACETAMINOPHEN 650 MG SUPP.RECT PR PRN (22:06)
[2019-12-02] MEDS ORDERED: BENZOCAINE/MENTHOL AEROSOL SPRAY 56 ML TOP PRN (22:06)
--- NOTE | 2019-12-02 23:34 | Delivery Summary ---
Del Sum A-C Datetime Report Generated by CPN: 12/02/2019 23:34 DELIVERY PERSONNEL DELIVERY PERSONNEL: [id number] Delivery Doctor:: Cynthia Ruff MD Labor and Delivery Nurse:: Sharron Zamora RNmanager completions Nurse:: Aixa Mai RN Nursery Nurse:: Chen Colmenares RN Cloth Examiner Machine/PUBLIC HEALTH TRAINING ASSISTANT: Jennie Mosquera ST Additional Personnel: : Kae Marroquin RN MATERNAL INFORMATION Delivery Anesthesia: Epidural Medications After Delivery: Pitocin 30 Units in 500ml NS/D5W; Other-Please Comment Meds After Delivery Comment: Cytotec 1000 mcg PO per order Estimated Blood Loss (ml): 250 Delivery QBL: 250 Maternal Complications: None LABOR SUMMARY EDC: 11/27/2019 00:00 No. Babies in Womb: 1 Attempted: No Labor Anesthesia: Epidural LABOR INFORMATION Reason for Induction: Not Applicable Onset of Labor: 12/02/2019 18:39 Complete Dilatation: 12/02/2019 21:42 Oxytocin: Augmentation Group B Beta Strep: negative Antibiotics # of Doses: 0 Steroids Given: None Reason Steroids Not Administered: Not Applicable MEMBRANES Membranes Rupture Method: Spontaneous Rupture of Membranes: 12/02/2019 13:00 Length of Rupture (hr): 8.83 Amniotic Fluid Color: Clear Amniotic Fluid Amount: Small Amniotic Fluid Odor: Normal STAGES OF LABOR Stage 1 hr: 3 Stage 1 min: 3 Stage 2 hr: 0 Stage 2 min: 8 Stage 3 hr: 0 Stage 3 min: 5 Total Time in Labor hr: 3 Total Time in Labor min: 16 VAGINAL DELIVERY Episiotomy: None Laceration #1: Perineal Laceration Extension #1: First Degree Laceration #2: None Laceration Extension #2: N/A Laceration #3: None Laceration Extension #3: N/A Laceration Repair: Yes Laceration Repair Note: Small perineal laceration repaired with 3-0 chromic suture. Sponge Count Correct: Vaginal Sweep Performed Sharps Count Correct: Yes CSECTION DELIVERY Primary Indication: N/A Secondary Indication: N/A CSection Incidence: N/A Labor: N/A Elective: N/A CSection Incision: N/A BABY A INFORMATION Delivery Date/Time: 12/02/2019 21:50 Method of Delivery: Vaginal Nurse Controlled Delivery: No Born in Route : No : N/A Forceps: N/A Vacuum Extraction: N/A Shoulder Dystocia : No PRESENTATION/POSITION BABY A Presentation: Cephalic Cephalic Presentation: Vertex Vertex Position: Right Occipital Anterior Breech Presentation: N/A PLACENTA INFORMATION BABY A Placenta Delivery Time : 12/02/2019 21:55 Placenta Method of Delivery: Manual Removal Placenta Status: Delivered SCORES BABY A Heart Rate 1 min: >100 bpm Resp Effort 1 min: Good Cry Reflex Irritability 1 min: Cough or Sneeze or Pulls Away Muscle Tone 1 min: Active Motion Color 1 min: Blue/Pale Resuscitation Effort 1 min: Tactile Stimulation SCORE 1 MIN: 8 Heart Rate 5 min: >100 bpm Resp Effort 5 min: Good Cry Reflex Irritability 5 min: Cough or Sneeze or Pulls Away Muscle Tone 5 min: Active Motion Color 5 min: Body Dime Box, Extremities Blue Resuscitation Effort 5 min: N/A SCORE 5 MIN: 9 INFORMATION BABY A Gestational Age at Delivery: 40.5 Gestational Status: Full Term- 39- 40.6 Weeks Outcome : Liveborn Infant Condition : Stable Infant Sex: Male IDENTIFICATION BABY A Verification Date/Time: 12/02/2019 22:14 ID Band Number: [id number] Mother's Name Verified: Yes RN Verifying Infant: K Noah, RN Additional Verifying Personnel: S Sergei, RN WEIGHT/LENGTH BABY A Birthweight (gm): 4450 Infant Weight (lb): 9 Weight (oz): 13 Length (in): 21.00 Length (cm): 53.34 CORD INFORMATION BABY A No. Cord Vessels: 3 Nuchal Cord : Around Neck x1, Loose Cord Blood Taken: Yes-For Storage (Mom's Blood type +) Suction: None; Mouth ASSESSMENT BABY A Infant Complications: None Physical Findings at Delivery: Within Normal Limits Physical Findings- Other: placenta removed because bleeding seemed a bit much Respirations: Appears Normal Skin to Skin: Yes Skin to Skin Time (min): 60 Infant Care By: QuintinAlex Colmenares RN Transferred To: Remains with Mother BABY B INFORMATION : N/A SIGNATURES Signature: with User ID: [email or web address] : I personally evaluated and examined the patient in conjunction with the MLP and agree with the assessment, treatment plan and disposition.
[2019-12-03] MEDS ORDERED: LOPERAMIDE HCL 2 MG CAPSULE PO ONE (00:54)
[2019-12-03] MEDS: FAMOTIDINE 20 MG TABLET PO SCH ×3 (05:13→21:46)
[2019-12-03] MEDS: IBUPROFEN 800 MG TABLET PO SCH ×3 (05:27→21:46)
[2019-12-03 07:55] LABS: HEMATOCRIT 29.3 % (36.0-47.0); HEMOGLOBIN 10.3 g/dL (12.0-15.5); MEAN CORPUSCULAR HEMOGLOBIN 31.4 pg (27.0-33.4); MEAN CORPUSCULAR HGB CONC 35.2 g/dL (32.0-36.0); MEAN CORPUSCULAR VOLUME 89 fl (80-97); PLATELET COUNT 193 10^3/uL (150-450); RED BLOOD COUNT 3.28 10^6/uL (3.72-5.28); RED CELL DISTRIBUTION WIDTH 14.4 % (11.5-14.0); WHITE BLOOD COUNT 8.6 10^3/uL (4.0-10.5)
[2019-12-03] MEDS: FERROUS SULFATE 325 MG TABLET PO SCH ×2 (09:09→17:23)
[2019-12-03] MEDS: SENNOSIDES/DOCUSATE 8.6-50 MG 1 EACH TABLET PO SCH (09:09)
[2019-12-03] MEDS: PRENATAL VITAMIN W DHA CAPSULE PO SCH (09:09)
[2019-12-03] MEDS: DOCUSATE SODIUM 100 MG CAPSULE PO SCH ×2 (09:09→17:23)
--- NOTE | 2019-12-03 11:29 | PDOC PROGRESS REPORT ---
Subjective-OB Progress Note for:: 12/03/19 Subjective: Pt doing well, no concerns. Baby in NICU. Pt reports light bleeding, reg diet and voiding w/o difficulty. Physical Exam (OB) Vital Signs: Temp Pulse Resp BP Pulse Ox 97.2 F 68 16 92/61 L 96 12/03/19 07:44 12/03/19 07:44 12/03/19 07:44 12/03/19 07:44 12/03/19 07:44 Intake & Output 12/02/19 12/03/19 12/04/19 06:59 06:59 06:59 Output Total 100 Balance -100 Weight 89.8 kg - Lochia Lochia Amount: Scant < 10 ml Lochia Color: Rubra/Red - Abdomen Description: Soft Hernia Present: No Fundal Description: Firm, Midline Describe if Not Midline: see nursing note Fundal Height: u/u - u/2 Objective-Diagnostic Laboratory: 12/03/19 07:15 12/02/19 12/02/19 12/02/19 15:11 18:06 18:06 WBC 6.0 RBC 3.92 Hgb 12.0 Hct 35.3 L MCV 90 MCH 30.7 MCHC 34.1 RDW 14.4 H Plt Count 218 Seg Neutrophils % 65.5 Urine Color GLENN Urine Appearance CLOUDY Urine pH 6.0 Ur Specific [place] 1.028 Urine Protein 100 H Urine Glucose (UA) NEGATIVE Urine Ketones TRACE H Urine Blood NEGATIVE Urine Nitrite NEGATIVE Ur Leukocyte Esterase TRACE H Blood Type B POSITIVE Antibody Screen NEGATIVE 12/03/19 07:15 WBC 8.6 RBC 3.28 L Hgb 10.3 L Hct 29.3 L MCV 89 MCH 31.4 MCHC 35.2 RDW 14.4 H Plt Count 193 Seg Neutrophils % Urine Color Urine Appearance Urine pH Ur Specific [place] Urine Protein Urine Glucose (UA) Urine Ketones Urine Blood Urine Nitrite Ur Leukocyte Esterase Blood Type Antibody Screen Assessment and Plan(PN) - Assessment and Plan (1) Intrauterine Is this a current diagnosis for this admission?: Yes (2) Obstetric labial laceration, delivered, current hospitalization Is this a current diagnosis for this admission?: Yes (3) Polyhydramnios Qualifiers: Fetus number: single or unspecified fetus Trimester: third trimester Qualified Code(s): O40.3XX0 - Polyhydramnios, third trimester, not applicable or unspecified Is this a current diagnosis for this admission?: Yes (4) Vaginal delivery Is this a current diagnosis for this admission?: Yes - Time Spent with Patient Time with patient: Less than 15 minutes Medications reviewed and adjusted accordingly: Yes - Disposition Anticipated Discharge: Home Within: within 24 hours
[2019-12-04] MEDS: IBUPROFEN 800 MG TABLET PO SCH (05:25)
[2019-12-04 08:31] VITALS: BP 104/67
[2019-12-04] MEDS: FERROUS SULFATE 325 MG TABLET PO SCH (09:13)
[2019-12-04] MEDS: PRENATAL VITAMIN W DHA CAPSULE PO SCH (09:13)
[2019-12-04] MEDS: FAMOTIDINE 20 MG TABLET PO SCH (09:13)
[2019-12-04] MEDS: SENNOSIDES/DOCUSATE 8.6-50 MG 1 EACH TABLET PO SCH (09:13)
[2019-12-04] MEDS: DOCUSATE SODIUM 100 MG CAPSULE PO SCH (09:13)
--- NOTE | 2019-12-04 12:36 | PDOC DISCHARGE SUMMARY ---
Impression - Admit/DC Date/PCP Admission Date/Primary Care Provider: 12/02/19 15:30 OBDULIO ESCAMILLA CNM Discharge Date: 12/04/19 - Discharge Diagnosis (1) Intrauterine Is this a current diagnosis for this admission?: Yes (2) Obstetric labial laceration, delivered, current hospitalization Is this a current diagnosis for this admission?: Yes (3) Vaginal delivery Is this a current diagnosis for this admission?: Yes (4) Polyhydramnios Is this a current diagnosis for this admission?: Yes (5) Anemia due to acute blood loss Is this a current diagnosis for this admission?: Yes (6) Perineal laceration during delivery, delivered Is this a current diagnosis for this admission?: Yes - Assessment Summary: 29yo G7 now P5 s/p ppd 2 stable and ready for discharge, understands warning s/s and when to seek immediate care or rtc. - Additional Information Resuscitation Status: Full Code Discharge Diet: As Tolerated, Regular Discharge Activity: Activity As Tolerated, Balance Activity w/Rest, No Lifting Over 10 Pounds, Pelvic Rest, No tub bath, Walk Frequently Referrals: OBDULIO ESCAMILLA CNM [Primary Care Provider] - Prescriptions: Ibuprofen [Motrin 800 mg Tablet] 800 mg PO Q8HP PRN #30 tablet PRN Reason: Abdominal Cramping Docusate Sodium [Colace 100 mg Capsule] 100 mg PO BID #60 capsule Ferrous Sulfate [Feosol 325 mg Tablet] 325 mg PO BID #60 tablet Home Medications: Vit/Dha [ Multi + Dha Capsule] 1 cap PO DAILY 12/02/19 Docusate Sodium [Colace 100 mg Capsule] 100 mg PO BID #60 capsule 12/04/19 Ferrous Sulfate [Feosol 325 mg Tablet] 325 mg PO BID #60 tablet 12/04/19 Ibuprofen [Motrin 800 mg Tablet] 800 mg PO Q8HP PRN #30 tablet 12/04/19 Results Laboratory Results: WBC 8.6 10^3/uL (4.0-10.5) 12/03/19 07:15 RBC 3.28 10^6/uL (3.72-5.28) L 12/03/19 07:15 Hgb 10.3 g/dL (12.0-15.5) L 12/03/19 07:15 Hct 29.3 % (36.0-47.0) L 12/03/19 07:15 MCV 89 fl (80-97) 12/03/19 07:15 MCH 31.4 pg (27.0-33.4) 12/03/19 07:15 MCHC 35.2 g/dL (32.0-36.0) 12/03/19 07:15 RDW 14.4 % (11.5-14.0) H 12/03/19 07:15 Plt Count 193 10^3/uL (150-450) 12/03/19 07:15 Lymph % (Auto) 25.0 % (13-45) 12/02/19 18:06 [place] % (Auto) 8.6 % (3-13) 12/02/19 18:06 Eos % (Auto) 0.6 % (0-6) 12/02/19 18:06 Baso % (Auto) 0.3 % (0-2) 12/02/19 18:06 Absolute Neuts (auto) 3.9 10^3/uL (1.7-8.2) 12/02/19 18:06 Absolute Lymphs (auto) 1.5 10^3/uL (0.5-4.7) 12/02/19 18:06 Absolute Monos (auto) 0.5 10^3/uL (0.1-1.4) 12/02/19 18:06 Absolute Eos (auto) 0.0 10^3/uL (0.0-0.6) 12/02/19 18:06 Absolute Basos (auto) 0.0 10^3/uL (0.0-0.2) 12/02/19 18:06 Seg Neutrophils % 65.5 % (42-78) 12/02/19 18:06 Urine Color GLENN 12/02/19 15:11 Urine Appearance CLOUDY 12/02/19 15:11 Urine pH 6.0 (5.0-9.0) 12/02/19 15:11 Ur Specific [place] 1.028 12/02/19 15:11 Urine Protein 100 mg/dL (NEGATIVE) H 12/02/19 15:11 Urine Glucose (UA) NEGATIVE mg/dL (NEGATIVE) 12/02/19 15:11 Urine Ketones TRACE mg/dL (NEGATIVE) H 12/02/19 15:11 Urine Blood NEGATIVE (NEGATIVE) 12/02/19 15:11 Urine Nitrite NEGATIVE (NEGATIVE) 12/02/19 15:11 Urine Bilirubin NEGATIVE (NEGATIVE) 12/02/19 15:11 Urine Urobilinogen 4.0 mg/dL (<2.0) H 12/02/19 15:11 Ur Leukocyte Esterase TRACE (NEGATIVE) H 12/02/19 15:11 Urine Ascorbic Acid NEGATIVE (NEGATIVE) 12/02/19 15:11 Membranes Rupture POSITIVE (NEGATIVE) H 12/02/19 15:34 Urine Opiates Screen NEGATIVE 12/02/19 15:11 Urine Methadone Screen NEGATIVE 12/02/19 15:11 Ur Barbiturates Screen NEGATIVE 12/02/19 15:11 Ur Phencyclidine Scrn NEGATIVE 12/02/19 15:11 Ur Amphetamines Screen NEGATIVE 12/02/19 15:11 U Benzodiazepines Scrn NEGATIVE 12/02/19 15:11 Urine Cocaine Screen NEGATIVE 12/02/19 15:11 U Marijuana (THC) Screen NEGATIVE 12/02/19 15:11 RPR NONREACTIVE (NONREACTIVE) 12/02/19 18:06 Blood Type B POSITIVE 12/02/19 18:06 Antibody Screen NEGATIVE 12/02/19 18:06
== END 2019-12-04 14:20 | disposition home or self-care (01) | DRG 806 ==
LOC: LC 15:00 → LR 15:30 → 2S 12-03 00:03
PROVIDERS: ADMIT Obstetrics & Gynecology; ATTEND Obstetrics & Gynecology
PROC: 10E0XZZ Delivery of Products of Conception, External Approach (ICD-10-PCS; principal; 2019-12-02)
PROC: 0HQ9XZZ Repair Perineum Skin, External Approach (ICD-10-PCS; 2019-12-02)
DX: O40.3XX0 Polyhydramnios, third trimester, not applicable or unspecified (principal); D62 Acute posthemorrhagic anemia; Z37.0 Single live birth; O70.0 First degree perineal laceration during delivery; O69.81X0 Labor and delivery complicated by cord around neck, without compression, not applicable or unspecified; O99.02 Anemia complicating childbirth; Z3A.40 40 weeks gestation of pregnancy
CPT/HCPCS: 1967; 36415; 80307; 81005; 84112; 85025; 85027; 86592; 86850; 86900; 86901; C1758; J2590; J3010; J3490